=== PATIENT | male | born 1940 | race Caucasian/White ===

== ENCOUNTER 2022-04-19 14:05 | Inpatient (IN) | payer MEDICARE, OTHER ==
[2022-04-18 11:03] LABS: ALBUMIN 2.9 G/DL (3.4-5.0); ANION GAP 8 (8-16); BLOOD UREA NITROGEN 12 MG/DL (7-18); BUN/CREATININE RATIO 14.5 (5.4-32.0); CALCIUM 8.5 MG/DL (8.5-10.1); CHLORIDE 108 MMOL/L (99-107); CREATININE 0.83 MG/DL (0.60-1.10); GLUCOSE 107 MG/DL (70-104); POTASSIUM 3.5 MMOL/L (3.5-5.1); SODIUM 142 MMOL/L (135-145); TOTAL CARBON DIOXIDE 25.7 MMOL/L (24-32); eGFR 89 ML/MIN
[2022-04-18 11:04] LABS: EOSINOPHILS % (AUTO) 0.3 % (0-6); HEMATOCRIT 30.1 % (42.0-52.0); HEMOGLOBIN 9.9 g/dl (14.0-17.9); MEAN CORPUSCULAR HEMOGLOBIN 35.5 PG (27.0-31.0); MEAN CORPUSCULAR VOLUME 107.7 FL (78-98); MEAN PLATELET VOLUME 8.5 FL (7.4-10.4); MONOCYTES # (AUTO) 0.9 X10'3 (0-0.9); NEUTROPHILS # (AUTO) 1.8 X10'3 (1.8-7.7); NEUTROPHILS % (AUTO) 39.9 % (42-75); WHITE BLOOD COUNT 4.6 X10'3 (4.5-11.0)
[2022-04-18 11:05] LABS: BASOPHILS % (AUTO) 0.4 % (0-1); LYMPHOCYTES # (AUTO) 1.8 X10'3 (1.1-4.8); LYMPHOCYTES % (AUTO) 39.9 % (21-51); MONOCYTES % (AUTO) 19.5 % (2-12); PLATELET COUNT 139 X10'3 (140-440); RED BLOOD COUNT 2.79 X10'6 (4.70-6.10)
[2022-04-18 11:08] LABS: APTT 27 SECONDS (22-32)
[2022-04-18 11:27] LABS: TOTAL CELLS COUNTED 100
[2022-04-18 11:28] LABS: ANISOCYTOSIS 2+; MICROCYTOSIS 1+; PLATELET ESTIMATE DECREASED
[~2022-04-19] VITALS: Ht 167.6 cm; Wt 124.2 kg
[2022-04-19] VITALS (7 sets, daily range): BP systolic 123–157; BP diastolic 63–88
[2022-04-19] MEDS ORDERED: diphenhydrAMINE 25mg capsule PO PRN (14:25)
[2022-04-19] MEDS ORDERED: LORazepam 0.5 MG tablet PO PRN (14:25)
[2022-04-19] MEDS ORDERED: FLO0.4C (15:17)
[2022-04-19] MEDS ORDERED: FURO20TA4 (15:17)
[2022-04-19] MEDS ORDERED: ASPI-1265 PO (15:17)
[2022-04-19] MEDS ORDERED: LIDOcaine 1%/PF 5ML 10 MG/ML VIAL ONE (16:06)
[2022-04-19] MEDS ORDERED: verapamil 2.5 mg/ml inj IV ONE (16:06)
[2022-04-19] MEDS ORDERED: nitroGLYCERIN-Tridil 50MG/D5W 250 ML IV ONE (16:06)
[2022-04-19] MEDS ORDERED: heparin 1,000unit/ml 10ml vial 10 ML ONE (16:07)
[2022-04-19] MEDS ORDERED: fentaNYL/PF 50MCG/1 ML 2ML syringe ONE (16:07)
[2022-04-19] MEDS ORDERED: iohexol 350MG/ML 100ml bottle IV ONE (16:07)
[2022-04-19] MEDS ORDERED: midazolam 1 mg/ML 2ml injection ONE (16:07)
--- NOTE | 2022-04-19 17:11 | NUR ---
Bedside report received from Mily RN s/p heart cath. Vasc band to right radial artery. No bleeding/hematoma noted. Vital signs stable.
[2022-04-19] MEDS ORDERED: HYDROcodone/acetaminophen 10/325mg tab PO PRN ×2 (17:30)
[2022-04-19] MEDS ORDERED: FURO-150 PO (17:38)
[2022-04-19] MEDS ORDERED: FLO0.4C PO (17:38)
[2022-04-19] MEDS ORDERED: aspirin 81mg tab.chew PO ONE (17:40)
--- NOTE | 2022-04-19 17:45 | NUR ---
Patient admitted to 301 for surgical consult. Bedside report given to JERRY Rapp. Vasc band in place to right radial artery. No signs of bleeding or hematoma noted. Vital signs stable. All questions answered.
[2022-04-19] MEDS ORDERED: MESSAGE TO PHARMACY IJ ONE (18:25)
--- NOTE | 2022-04-19 19:02 | NUR ---
Problems reprioritized. Patient report given, questions answered & plan of care reviewed with JERRY Charles.
[2022-04-19] MEDS: normal saline 1,000 ML IV SCH (19:07)
[2022-04-19 20:02] LABS: HEMOGLOBIN A1C 6.5 % (4.5-6.2)
[2022-04-19 20:12] LABS: APTT 33 SECONDS (22-32)
[2022-04-19 20:14] LABS: CHOL/HDL RATIO 4.8 (0.00-4.99); CHOLESTEROL 139 MG/DL (0-200); HDL CHOLESTEROL 29 MG/DL (35-60); LDL CHOLESTEROL 88 MG/DL (50-100); TRIGLYCERIDES 95 MG/DL (20-135)
--- NOTE | 2022-04-19 22:01 | NUR ---
Spoke with Didi from Lab and she confirmed that Type and screen and blood is scheduled for Am labs. She was made aware that the orders on nurses end appear type and screen and blood is ordered for 04/21, she reassured me that it will be drawn 04/20 not 04/21. Addendum: 04/19/22 at 2205 by Araceli López RN Amended: Links added.
[2022-04-19 22:21] LABS: ABG BASE EXCESS 1.3 mmol/L (-2.0-2.0); ABG HCO3 25.4 mmol/L (22.0-26.0); ABG OXYGEN SATURATION 90.7 % (94-97); ABG PCO2 (T) 37.9 mmHg (35.0-48.0); ABG PO2 (T) 59.6 mmHg (75.0-100.0); ALLEN'S TEST POSITIVE; FCOHb 0.3 % (0.0-3.9); FMetHb 0.3 % (0.0-1.5); FO2Hb 90.2 % (94-97); PATIENT TEMPERATURE 36.9; TOTAL HEMOGLOBIN 10.5 G/dl (14.0-18.0)
--- NOTE | 2022-04-19 23:00 | NUR ---
Order received from Dr. Gali Dolan for f/c insertion as pt has 560ml in bladder and is unable to void.
[2022-04-19] MEDS ORDERED: LIDOcaine 2% 10ml TOPICAL JELLY (Urojet) TP ONE (23:25)
--- NOTE | 2022-04-19 23:45 | NUR ---
Inserting pts f/c. Pt states that he is uncomfortable and assisted pt to sit up a bit more, pt trying to catch breath and another nurse assisted with repositioning pt and put a nasal canula on. Pt turned dusky, unable to complete sentences, and appeared mottling on upper chest. 0001: Nurse started compressions w/ [facility] activation, as nurse was unable to locate a carotid or radial pulse and pt started agonal breathing. [facility] team arrived. Addendum: 04/20/22 at 0207 by Araceli López RN Amended: Links added.
[2022-04-20] VITALS (36 sets, daily range): BP systolic 84–184; BP diastolic 35–103
[2022-04-20] MEDS: normal saline 1,000 ML IV SCH ×2 (00:25→20:17)
[2022-04-20 00:43] LABS: ABG BASE EXCESS -16.7 mmol/L (-2.0-2.0); ABG OXYGEN SATURATION 74.5 % (94-97); ABG PCO2 (T) 74.8 mmHg (35.0-48.0); ABG PO2 (T) 63.4 mmHg (75.0-100.0); FCOHb 0.3 % (0.0-3.9); FMetHb 0.2 % (0.0-1.5); FO2Hb 74.1 % (94-97)
--- NOTE | 2022-04-20 01:30 | NUR ---
Received patient post code blue from PCU; received report from Natalia RN; pt arrived to 2011 at ~0120, intubated w/RT at bedside; pt on transport monitor; placed on bedside monitor, pt in ST, elevated BP; sats 80s while RT bagging pt; pt unresponsive post code; PERRL, not responding to verbal/painful stimuli; OG to LIS w/coffee brown output; FC to be placed; pt to be started on hypothermia protocol, maintaining 36.0C;
[2022-04-20] MEDS ORDERED: sodium phosphate inj. 15 MMOL in dextrose 5%-water 250 ML IV PRN (01:40)
[2022-04-20] MEDS ORDERED: magnesium 4gm in 100ml NS 100 ML IV PRN (01:40)
[2022-04-20] MEDS ORDERED: sodium phosphate inj. 30 MMOL in dextrose 5%-water 250 ML IV PRN (01:40)
[2022-04-20] MEDS ORDERED: magnesium 2GM in 50ml NS 50 ML IV PRN (01:40)
[2022-04-20] MEDS ORDERED: magnesium Cl slow-release 64mg tablet PO PRN (01:40)
[2022-04-20 01:50] LABS: ABG BASE EXCESS -9.8 mmol/L (-2.0-2.0); ABG HCO3 18.7 mmol/L (22.0-26.0); ABG OXYGEN SATURATION 81.1 % (94-97); ABG PCO2 (T) 51.6 mmHg (35.0-48.0); ABG PO2 (T) 57.6 mmHg (75.0-100.0); ALLEN'S TEST POSITIVE; FMetHb 0.3 % (0.0-1.5); FO2Hb 80.9 % (94-97); PATIENT TEMPERATURE 36.7; PEEP 15 cm H2O; RESPIRATORY RATE 22 b/min; TIDAL VOLUME 450 mL; TOTAL HEMOGLOBIN 12.5 G/dl (14.0-18.0)
[2022-04-20] MEDS ORDERED: sodium bicarbonate (8.4%) inj. 150 MEQ in dextrose 5%-water 1,000 ML IV SCH (01:50)
[2022-04-20 01:56] LABS: APTT 28 SECONDS (22-32)
[2022-04-20 01:58] LABS: ALANINE AMINOTRANSFERASE 30 U/L (12-78); ALBUMIN 2.7 G/DL (3.4-5.0); ALBUMIN/GLOBULIN RATIO 0.6 (1.1-1.5); ALKALINE PHOSPHATASE 118 IU/L (46-116); ANION GAP 14 (8-16); ASPARTATE AMINO TRANSFERASE 41 U/L (10-37); BASOPHILS # (AUTO) 0.1 X10'3 (0-0.2); BASOPHILS % (AUTO) 0.3 % (0-1); BILIRUBIN,TOTAL 0.3 MG/DL (0.1-1.0); BLOOD UREA NITROGEN 13 MG/DL (7-18); BUN/CREATININE RATIO 9.2 (5.4-32.0); CHLORIDE 103 MMOL/L (99-107); CREATININE 1.41 MG/DL (0.60-1.10); GLUCOSE 258 MG/DL (70-104); MEAN CORPUSCULAR VOLUME 113.7 FL (78-98); SODIUM 138 MMOL/L (135-145); TOTAL CARBON DIOXIDE 21.3 MMOL/L (24-32); TOTAL PROTEIN 6.9 G/DL (6.4-8.2); eGFR 48 ML/MIN
[2022-04-20 01:59] LABS: EOSINOPHILS % (AUTO) 0.2 % (0-6); HEMATOCRIT 35.7 % (42.0-52.0); HEMOGLOBIN 11.2 g/dl (14.0-17.9); LYMPHOCYTES # (AUTO) 12.1 X10'3 (1.1-4.8); MEAN CORPUSCULAR HEMOGLOBIN 35.6 PG (27.0-31.0); MEAN CORPUSCULAR HGB CONC 31.3 g/dL (33.0-36.5); MEAN PLATELET VOLUME 8.9 FL (7.4-10.4); MONOCYTES # (AUTO) 1.3 X10'3 (0-0.9); MONOCYTES % (AUTO) 7.4 % (2-12); NEUTROPHILS # (AUTO) 4.5 X10'3 (1.8-7.7); NEUTROPHILS % (AUTO) 25.1 % (42-75); PLATELET COUNT 194 X10'3 (140-440); RED BLOOD COUNT 3.14 X10'6 (4.70-6.10); RED CELL DISTRIBUTION WIDTH 20.5 % (11.5-14.5); WHITE BLOOD COUNT 18.1 X10'3 (4.5-11.0)
[2022-04-20 02:02] LABS: MAGNESIUM 1.8 MG/DL (1.5-2.4); POTASSIUM 3.8 MMOL/L (3.5-5.1)
[2022-04-20] MEDS: midazolam 100mg in NS 100ml 100 ML IV PRN ×2 (02:17→23:51)
[2022-04-20] MEDS: FENTANYL-0.9 % NACL/PF 100 ML IV PRN ×2 (02:17→21:37)
[2022-04-20] MEDS ORDERED: furosemide 40mg/4ml inj ONE (02:18)
[2022-04-20] MEDS ORDERED: furosemide 40mg/4ml inj IV ONE (02:20)
[2022-04-20] MEDS ORDERED: sodium bicarbonate (8.4%) 1 mEq/ml syringe ONE (02:39)
[2022-04-20] MEDS ORDERED: dextrose 50%-water 50ml dispensing syringe IV PRN ×2 (02:40)
[2022-04-20] MEDS ORDERED: insulin Lispro (HumaLOG) vial - multi-dose SQ SCH (02:40)
[2022-04-20] MEDS ORDERED: sodium bicarbonate (8.4%) 1 mEq/ml syringe IV ONE (02:50)
--- NOTE | 2022-04-20 03:00 | NUR ---
Low dose sedation started; pt hypertensive but not responding at this time; cooling measures started w/goal to be 36.0; gaspar placed w/cloudy yellow urine out; good radial pulsed, no hematoma or oozing at R radial puncture site; abd large/soft, OG w/small amt of blood/brown output; orders reviewed w/Dr. Valentin MD verified CVL placement CXR, aware of critical values post code including acidotic ABG; changes made to vent w/increased peep for continued low sats in 70s; lasix given w/good results, sats improved post lasix/increased peep; lungs clear but diminished bilat;
[2022-04-20 03:23] LABS: ANISOCYTOSIS 3+; TOTAL CELLS COUNTED 100
[2022-04-20 03:30] LABS: PLATELET ESTIMATE NORMAL
[2022-04-20] MEDS: meperidine/PF 25mg/ml syringe IV SCH ×2 (04:00→08:00)
[2022-04-20] MEDS ORDERED: heparin 10,000 units/1 ML INJ IV ONE (04:35)
[2022-04-20] MEDS: heparin 25,000 UNIT/250ml bag 250 ML IV SCH (05:12)
[2022-04-20] MEDS ORDERED: NORepinephrine 8mg/ 250ml NS 250 ML IV ONE (05:14)
[2022-04-20] MEDS ORDERED: NORepinephrine 8mg/ 250ml NS 250 ML IV SCH (05:15)
--- NOTE | 2022-04-20 06:30 | NUR ---
Pt woke up, able to follow simple commands; OBREGON; update given to Dr. Hanson, pt now hypotensive w/SBP 80s; levophed started; heparin gtt started per protocol for + troponin; update given to granddaughter, questions answered. Shift report given to JERRY Lund; questions answered.
[2022-04-20] MEDS ORDERED: insulin regular, human U-100 3ml vial - multi-dose SQ SCH (08:00)
[2022-04-20] MEDS ORDERED: aspirin 81mg tab.chew PO SCH (08:00)
[2022-04-20] MEDS ORDERED: furosemide 20MG tablet PO SCH (08:00)
[2022-04-20 08:10] LABS: ABG BASE EXCESS -1.4 mmol/L (-2.0-2.0); ABG HCO3 25.3 mmol/L (22.0-26.0); ABG OXYGEN SATURATION 93.7 % (94-97); ABG PCO2 (T) 47.2 mmHg (35.0-48.0); ALLEN'S TEST POSITIVE; FCOHb 0.2 % (0.0-3.9); FMetHb 0.1 % (0.0-1.5); FO2Hb 93.4 % (94-97); PATIENT TEMPERATURE 35.4; PEEP 18 cm H2O; RESPIRATORY RATE 22 b/min; TIDAL VOLUME 450 mL; TOTAL HEMOGLOBIN 13.8 G/dl (14.0-18.0)
[2022-04-20] MEDS ORDERED: normal saline 500ml IV soln 500 ML IV ONE (08:15)
[2022-04-20 08:23] LABS: ALBUMIN 2.3 G/DL (3.4-5.0); ANION GAP 11 (8-16); BLOOD UREA NITROGEN 19 MG/DL (7-18); BUN/CREATININE RATIO 11.7 (5.4-32.0); CALCIUM 7.9 MG/DL (8.5-10.1); CHLORIDE 109 MMOL/L (99-107); CREATININE 1.63 MG/DL (0.60-1.10); GLUCOSE 181 MG/DL (70-104); MAGNESIUM 1.5 MG/DL (1.5-2.4); SODIUM 146 MMOL/L (135-145); TOTAL CARBON DIOXIDE 26.4 MMOL/L (24-32); eGFR 41 ML/MIN
[2022-04-20 08:33] LABS: POTASSIUM 2.5 MMOL/L (3.5-5.1)
[2022-04-20] MEDS: potassium Cl 20mEq/100mL bag 100 ML IV PRN (08:36)
[2022-04-20] MEDS: cefepime 1GM/NS ADD-VANTAGE 100 ML IV SCH ×3 (08:36→23:50)
[2022-04-20] MEDS: sodium bicarbonate (8.4%) inj. 150 MEQ in dextrose 5%-water 1,000 ML IV SCH ×2 (08:36→23:01)
[2022-04-20] MEDS: NORepinephrine inj. 32 MG in normal saline 250ml IV soln 218 ML IV SCH ×2 (08:37→20:18)
--- NOTE | 2022-04-20 09:00 | NUR ---
Initial: Pt admit for CAD. Per certified ski patroller pt s/p code blue and now intubated with coffee brown output present once OGT placed on LIS. Prior to intubation pt was on a heart healthy diet and documented with 75-100% PO intake of first meal. No TF consult at this time though will place TF recommendations below for if expected prolonged intubation and to receive nutrition support. Noted pt receiving NaBicarb/D5 at 75 mL/hr providing 306 kcal/day. LBM 04/18. Will continue to follow closely. Recommendations: 1) IF TF, continuous Vital HP with 75 mL/hr goal rate. Begin at 35 mL/hr and advance by 20 mL Q8H as tolerated to goal rate; may need to adjust goal rate if pt to continue receiving D5 2) IF TF, additional 120 mL water flush Q4H; monitor serum Na 3) IF TF, prealbumin q Friday/ 4) Daily scaled weights per rx 5) Routine bowel care Addendum: 04/20/22 at [address] Amended: Links added.
[2022-04-20] MEDS ORDERED: insulin regular, human 10 units/0.1 ml syringe SQ SCH (09:38)
[2022-04-20] MEDS: aspirin 81mg tab.chew PO SCH (09:47)
[2022-04-20] MEDS: furosemide 40mg/4ml inj IV SCH ×2 (09:47→19:27)
[2022-04-20] MEDS: atorvastatin 20mg tablet PO SCH (09:49)
[2022-04-20] MEDS: metoprolol succinate 25mg (24-HOUR) SR. Tablet PO SCH (09:50)
[2022-04-20] MEDS: pantoprazole 40MG/NS 100ML BAG 100 ML IV SCH (09:51)
[2022-04-20] MEDS: tamsulosin 0.4mg capsule PO SCH (09:51)
[2022-04-20 12:59] LABS: ALBUMIN 2.3 G/DL (3.4-5.0); ANION GAP 4 (8-16); BLOOD UREA NITROGEN 21 MG/DL (7-18); BUN/CREATININE RATIO 11.9 (5.4-32.0); CALCIUM 7.3 MG/DL (8.5-10.1); CHLORIDE 112 MMOL/L (99-107); CREATININE 1.76 MG/DL (0.60-1.10); GLUCOSE 156 MG/DL (70-104); MAGNESIUM 1.4 MG/DL (1.5-2.4); SODIUM 144 MMOL/L (135-145); TOTAL CARBON DIOXIDE 27.6 MMOL/L (24-32); eGFR 37 ML/MIN
[2022-04-20 13:09] LABS: POTASSIUM 7.1 MMOL/L (3.5-5.1)
--- NOTE | 2022-04-20 18:30 | NUR ---
Received report from JERRY Lund; questions answered; grand daughter at bedside, updated on plan of care; per Dr. Carrillo, OR on hold for now; pt sedated w/fent/versed, will open eyes to stimulation; follows simple commands; sats adeq on 80%, but pt w/mod abd breathing, pulling large volumes on vent; not tachypnic; BP supo Addendum: 04/21/22 at 0032 by Iesha Peña RN BP supported w/levo at 0.4mcg/kg/min; orders in place to add vasopressin; HR SR 90s; remains on bicarb gtt and heparin gtt per protocol. UO minimal; still w/sm amt of brown colored OG output.
[2022-04-20] MEDS: vasopressin inj. 40 UNIT in dextrose 5%-water 50ml 38 ML IV SCH (19:27)
[2022-04-20 20:13] LABS: ALBUMIN 2.2 G/DL (3.4-5.0); ANION GAP 11 (8-16); BLOOD UREA NITROGEN 25 MG/DL (7-18); BUN/CREATININE RATIO 12.9 (5.4-32.0); CALCIUM 7.5 MG/DL (8.5-10.1); CHLORIDE 108 MMOL/L (99-107); CREATININE 1.94 MG/DL (0.60-1.10); GLUCOSE 105 MG/DL (70-104); MAGNESIUM 1.3 MG/DL (1.5-2.4); POTASSIUM 4.9 MMOL/L (3.5-5.1); SODIUM 146 MMOL/L (135-145); TOTAL CARBON DIOXIDE 27.1 MMOL/L (24-32); eGFR 33 ML/MIN
[2022-04-20] MEDS: insulin glargine (Lantus) pen - multi-dose SQ SCH (21:00)
[2022-04-20 21:23] LABS: ABG BASE EXCESS -0.9 mmol/L (-2.0-2.0); ABG HCO3 25.7 mmol/L (22.0-26.0); ABG PCO2 (T) 49.4 mmHg (35.0-48.0); ABG PO2 (T) 68.7 mmHg (75.0-100.0); ALLEN'S TEST POSITIVE; FCOHb 0.3 % (0.0-3.9); FMetHb 0.1 % (0.0-1.5); FO2Hb 92.6 % (94-97); PATIENT TEMPERATURE 36.4; PEEP 18 cm H2O; RESPIRATORY RATE 22 b/min; TIDAL VOLUME 450 mL; TOTAL HEMOGLOBIN 12.5 G/dl (14.0-18.0)
[2022-04-20 21:51] LABS: OXYGEN SATURATION (MIXED VEN) 40.9 % (60-80); PO2 MIXED VENOUS (TEMP COR) 24.8 mmHg (35-46)
--- NOTE | 2022-04-20 22:00 | NUR ---
Sedation increased slightly for comfort; titrating down levo slowly, added low dose vasopressin; recent abg w/improved ph; mixed venous 41; MD aware, fio2 increased on vent per orders; no other orders; heparin off x 1hr per protocol; no change in mentation; pt resting comfortably.
[2022-04-21] VITALS (34 sets, daily range): BP systolic 93–146; BP diastolic 43–75
--- NOTE | 2022-04-21 01:00 | NUR ---
No change in status; pt lightly sedated on vent; UO remains borderline; VSS, minimal levo; sm amt of bleeding around meatus, no blood in urine, urine cloudy, yumi; rash noted under pannus, tucked pillow case in place to help absorb moisture.
[2022-04-21] MEDS: mineral oil/petrolatum ophthal oint EACHEYE SCH ×4 (02:28→19:42)
[2022-04-21 03:02] LABS: BASOPHILS % (AUTO) 0.3 % (0-1); HEMOGLOBIN 10.8 g/dl (14.0-17.9); WHITE BLOOD COUNT 11.8 X10'3 (4.5-11.0)
[2022-04-21 03:03] LABS: EOSINOPHILS % (AUTO) 0 % (0-6); HEMATOCRIT 33.7 % (42.0-52.0); LYMPHOCYTES # (AUTO) 2.5 X10'3 (1.1-4.8); LYMPHOCYTES % (AUTO) 21.2 % (21-51); MEAN CORPUSCULAR HEMOGLOBIN 34.7 PG (27.0-31.0); MEAN CORPUSCULAR VOLUME 108.4 FL (78-98); MEAN PLATELET VOLUME 8.4 FL (7.4-10.4); MONOCYTES # (AUTO) 2.3 X10'3 (0-0.9); MONOCYTES % (AUTO) 19.4 % (2-12); NEUTROPHILS % (AUTO) 59.1 % (42-75); PLATELET COUNT 184 X10'3 (140-440); RED BLOOD COUNT 3.11 X10'6 (4.70-6.10); RED CELL DISTRIBUTION WIDTH 19.8 % (11.5-14.5)
[2022-04-21 03:12] LABS: ALANINE AMINOTRANSFERASE 36 U/L (12-78); ALBUMIN 2.1 G/DL (3.4-5.0); ALBUMIN/GLOBULIN RATIO 0.5 (1.1-1.5); ALKALINE PHOSPHATASE 79 IU/L (46-116); ANION GAP 7 (8-16); ASPARTATE AMINO TRANSFERASE 55 U/L (10-37); BILIRUBIN,TOTAL 0.8 MG/DL (0.1-1.0); BLOOD UREA NITROGEN 28 MG/DL (7-18); BUN/CREATININE RATIO 14.2 (5.4-32.0); CALCIUM 7.3 MG/DL (8.5-10.1); CHLORIDE 107 MMOL/L (99-107); CREATININE 1.97 MG/DL (0.60-1.10); GLUCOSE 98 MG/DL (70-104); MAGNESIUM 1.9 MG/DL (1.5-2.4); POTASSIUM 5.2 MMOL/L (3.5-5.1); SODIUM 144 MMOL/L (135-145); TOTAL CARBON DIOXIDE 29.7 MMOL/L (24-32); eGFR 33 ML/MIN
[2022-04-21] MEDS: FENTANYL-0.9 % NACL/PF 100 ML IV PRN ×2 (03:55→10:00)
[2022-04-21 04:04] LABS: ABG BASE EXCESS 2.1 mmol/L (-2.0-2.0); ABG OXYGEN SATURATION 97.3 % (94-97); ABG PCO2 (T) 54.2 mmHg (35.0-48.0); ABG PO2 (T) 102.5 mmHg (75.0-100.0); ALLEN'S TEST POSITIVE; FCOHb 0.3 % (0.0-3.9); FMetHb 0.1 % (0.0-1.5); FO2Hb 96.9 % (94-97); PATIENT TEMPERATURE 36.2; PEEP 18 cm H2O; RESPIRATORY RATE 22 b/min; TIDAL VOLUME 450 mL; TOTAL HEMOGLOBIN 11.8 G/dl (14.0-18.0)
[2022-04-21] MEDS ORDERED: MALTODEXTRIN/FRUCTOSE 0.68 KCAL/ML LIQUID 296ML BOTTLE PO ONE (05:30)
[2022-04-21] MEDS ORDERED: VANCOMYCIN 1,500MG inj. 1,500 MG in normal saline 500ml IV soln 300 ML IV ONE (05:30)
[2022-04-21] MEDS ORDERED: cefazolin/dext.iso 2gm/50ml 50 ML IV ONE (05:30)
[2022-04-21 05:59] LABS: ANISOCYTOSIS 2+; PLATELET ESTIMATE NORMAL; TOTAL CELLS COUNTED 100
--- NOTE | 2022-04-21 06:20 | NUR ---
Patient in room CICU 2011. I have received report from Mily EDWARDS and had the opportunity to ask questions and assume patient care.
--- NOTE | 2022-04-21 06:31 | NUR ---
Report given to JERRY Jacome; questions answered.
[2022-04-21] MEDS: heparin 25,000 UNIT/250ml bag 250 ML IV SCH ×4 (06:48→16:23)
[2022-04-21] MEDS: tamsulosin 0.4mg capsule PO SCH (07:25)
[2022-04-21] MEDS: metoprolol succinate 25mg (24-HOUR) SR. Tablet PO SCH (07:25)
[2022-04-21] MEDS: aspirin 81mg tab.chew PO SCH (07:25)
[2022-04-21] MEDS: atorvastatin 20mg tablet PO SCH (07:25)
[2022-04-21] MEDS: pantoprazole 40MG/NS 100ML BAG 100 ML IV SCH (07:35)
[2022-04-21] MEDS: furosemide 40mg/4ml inj IV SCH ×2 (07:35→19:42)
[2022-04-21] MEDS: cefepime 1GM/NS ADD-VANTAGE 100 ML IV SCH ×3 (08:25→23:42)
[2022-04-21] MEDS ORDERED: MESSAGE TO NURSING PO ONE ×5 (10:00)
[2022-04-21 12:09] LABS: ABG BASE EXCESS -1.4 mmol/L (-2.0-2.0); ABG HCO3 24.3 mmol/L (22.0-26.0); ABG OXYGEN SATURATION 97.2 % (94-97); ABG PCO2 (T) 43.4 mmHg (35.0-48.0); ABG PO2 (T) 100.4 mmHg (75.0-100.0); ALLEN'S TEST POSITIVE; FCOHb 0.3 % (0.0-3.9); FMetHb 0.2 % (0.0-1.5); FO2Hb 96.7 % (94-97); PEEP 18 cm H2O; RESPIRATORY RATE 22 b/min; TIDAL VOLUME 450 mL
[2022-04-21] MEDS: vasopressin inj. 40 UNIT in dextrose 5%-water 50ml 38 ML IV SCH (15:27)
--- NOTE | 2022-04-21 18:37 | NUR ---
Problems reprioritized. Patient report given, questions answered & plan of care reviewed with Jamarcus EDWARDS.
--- NOTE | 2022-04-21 18:38 | NUR ---
Patient in room CICU 2011. I have received report from Floyd EDWARDS and had the opportunity to ask questions and assume patient care.
[2022-04-21] MEDS: insulin glargine (Lantus) pen - multi-dose SQ SCH (20:21)
--- NOTE | 2022-04-21 21:00 | NUR ---
[id number] BED BATH AND ORAL CARE GIVEN , PATIENT TOLERATED WELL, NODS HEAD "YES" TO SLIGHT DISCOMFORT, REPOSITIONED FOR RELIEF
[2022-04-21 21:59] LABS: ANION GAP 9 (8-16); BLOOD UREA NITROGEN 39 MG/DL (7-18); CALCIUM 7.2 MG/DL (8.5-10.1); CHLORIDE 105 MMOL/L (99-107); GLUCOSE 112 MG/DL (70-104); MAGNESIUM 1.7 MG/DL (1.5-2.4); POTASSIUM 4.8 MMOL/L (3.5-5.1); SODIUM 143 MMOL/L (135-145); TOTAL CARBON DIOXIDE 28.6 MMOL/L (24-32); eGFR 27 ML/MIN
[2022-04-21] MEDS ORDERED: amiodarone 150mg/dext, iso-os 100 ML IV ONE ×2 (23:05→23:06)
--- NOTE | 2022-04-21 23:10 | NUR ---
SINGLE RESOURCE BOSS SHOWS AFIB, DR TABARES NOTIFIED AND ORDERS RECEIVED FOR AMIODARONE IV GTT
[2022-04-21] MEDS: amiodarone/D5 360MG/200ML BAG 200 ML IV SCH (23:19)
[2022-04-22] VITALS (34 sets, daily range): BP systolic 11–134; BP diastolic 18–87
--- NOTE | 2022-04-22 01:00 | NUR ---
[id number] repositioned q 2 hrs tolerating well
[2022-04-22 01:33] LABS: ABG BASE EXCESS -0.6 mmol/L (-2.0-2.0); ABG HCO3 24.5 mmol/L (22.0-26.0); ABG OXYGEN SATURATION 94.2 % (94-97); ABG PCO2 (T) 42.2 mmHg (35.0-48.0); ABG PO2 (T) 77.9 mmHg (75.0-100.0); ALLEN'S TEST POSITIVE; FCOHb 0.3 % (0.0-3.9); FMetHb 0.1 % (0.0-1.5); FO2Hb 93.8 % (94-97); PEEP 18 cm H2O; RESPIRATORY RATE 22 b/min; TIDAL VOLUME 450 mL; TOTAL HEMOGLOBIN 9.8 G/dl (14.0-18.0)
[2022-04-22] MEDS: mineral oil/petrolatum ophthal oint EACHEYE SCH ×4 (02:00→20:30)
[2022-04-22 03:03] LABS: EOSINOPHILS % (AUTO) 0.1 % (0-6)
[2022-04-22 03:05] LABS: BASOPHILS % (AUTO) 0.4 % (0-1); HEMATOCRIT 27.4 % (42.0-52.0); HEMOGLOBIN 8.8 g/dl (14.0-17.9); LYMPHOCYTES # (AUTO) 1.2 X10'3 (1.1-4.8); LYMPHOCYTES % (AUTO) 19.4 % (21-51); MEAN CORPUSCULAR HEMOGLOBIN 34.9 PG (27.0-31.0); MEAN CORPUSCULAR HGB CONC 32.3 g/dL (33.0-36.5); MEAN CORPUSCULAR VOLUME 108.2 FL (78-98); MEAN PLATELET VOLUME 8.8 FL (7.4-10.4); MONOCYTES # (AUTO) 0.9 X10'3 (0-0.9); MONOCYTES % (AUTO) 13.4 % (2-12); NEUTROPHILS # (AUTO) 4.2 X10'3 (1.8-7.7); NEUTROPHILS % (AUTO) 66.7 % (42-75); PLATELET COUNT 116 X10'3 (140-440); RED BLOOD COUNT 2.53 X10'6 (4.70-6.10); RED CELL DISTRIBUTION WIDTH 19.5 % (11.5-14.5); WHITE BLOOD COUNT 6.3 X10'3 (4.5-11.0)
[2022-04-22 03:17] LABS: ALANINE AMINOTRANSFERASE 40 U/L (12-78); ALBUMIN 1.9 G/DL (3.4-5.0); ALBUMIN/GLOBULIN RATIO 0.5 (1.1-1.5); ALKALINE PHOSPHATASE 74 IU/L (46-116); ANION GAP 9 (8-16); ASPARTATE AMINO TRANSFERASE 95 U/L (10-37); BILIRUBIN,TOTAL 0.7 MG/DL (0.1-1.0); BLOOD UREA NITROGEN 43 MG/DL (7-18); BUN/CREATININE RATIO 17.5 (5.4-32.0); CALCIUM 7.2 MG/DL (8.5-10.1); CHLORIDE 106 MMOL/L (99-107); CREATININE 2.46 MG/DL (0.60-1.10); GLUCOSE 136 MG/DL (70-104); MAGNESIUM 1.7 MG/DL (1.5-2.4); POTASSIUM 4.4 MMOL/L (3.5-5.1); SODIUM 143 MMOL/L (135-145); TOTAL CARBON DIOXIDE 28.5 MMOL/L (24-32); TOTAL PROTEIN 5.5 G/DL (6.4-8.2); eGFR 25 ML/MIN
[2022-04-22] MEDS: FENTANYL-0.9 % NACL/PF 100 ML IV PRN ×2 (04:00→21:08)
[2022-04-22] MEDS: midazolam 100mg in NS 100ml 100 ML IV PRN (04:01)
[2022-04-22] MEDS: NORepinephrine inj. 32 MG in normal saline 250ml IV soln 218 ML IV SCH (04:55)
--- NOTE | 2022-04-22 05:00 | NUR ---
AM ABG and AM labs reviewed and no critical william at this time
[2022-04-22] MEDS: amiodarone/D5 360MG/200ML BAG 200 ML IV SCH ×2 (06:00→16:26)
--- NOTE | 2022-04-22 06:00 | NUR ---
Patient in room CICU 2011. I have received report from Jamarcus EDWARDS and had the opportunity to ask questions and assume patient care.
--- NOTE | 2022-04-22 06:18 | NUR ---
Problems reprioritized. Patient report given, questions answered & plan of care reviewed with PATRICIA EDWARDS.
[2022-04-22 06:54] LABS: TOTAL CELLS COUNTED 100
[2022-04-22 06:55] LABS: ANISOCYTOSIS 2+; PLATELET ESTIMATE DECREASED
[2022-04-22] MEDS: metoprolol succinate 25mg (24-HOUR) SR. Tablet PO SCH (07:39)
[2022-04-22] MEDS: tamsulosin 0.4mg capsule PO SCH (07:39)
[2022-04-22] MEDS: atorvastatin 20mg tablet PO SCH (07:39)
[2022-04-22] MEDS: aspirin 81mg tab.chew PO SCH (07:40)
[2022-04-22] MEDS: pantoprazole 40MG/NS 100ML BAG 100 ML IV SCH (07:43)
[2022-04-22] MEDS: furosemide 40mg/4ml inj IV SCH ×3 (07:44→23:55)
[2022-04-22] MEDS: cefepime 1GM/NS ADD-VANTAGE 100 ML IV SCH ×3 (07:44→23:55)
[2022-04-22] MEDS: albumin (human) 25% 100 ML IV solution IV SCH ×3 (08:59→20:17)
[2022-04-22] MEDS: K, MAG and/or Phos replacement - Verify level? MC SCH (09:00)
[2022-04-22] MEDS ORDERED: HEPARIN SOD,PORK IN 0.45% NACL 250 ML IV SCH (09:55)
[2022-04-22] MEDS: heparin 10,000 units/1 ML INJ IV PRN ×2 (11:41→23:48)
[2022-04-22] MEDS: heparin 25,000 UNIT/250ml bag 250 ML IV SCH ×2 (11:41→23:49)
--- NOTE | 2022-04-22 11:52 | NUR ---
TF consult: Pt remains intubated w/ OG in place DX septic shock, lactic acidosis, and acute renal failure per EMR. TF to start today per MD; recs below. Phos 7.0 04/20 w/ no BM past two days this admit; bowel regimen and phos binder to start today per MD. Will monitor for EN tolerance and adjustment needs on vent. Recommendations: 1) Continuous TF per MD using Vital HP at 75 mL/hr goal; to provide 1800ml volume/day, 1800 kcals, 1505ml water, and 157g protein. 2) additional 100mL water flush Q6H; monitor serum Na 3) prealbumin q Friday/; daily wts 4) Phos binder w/ EN per MD; Phos 7.0mg/dl 04/20 5) Routine bowel care Addendum: 04/22/22 at [address] Amended: Links added.
[2022-04-22] MEDS ORDERED: calcium acetate 667mg (phosLO) tablet OGT SCH (12:00)
[2022-04-22] MEDS: calcium acetate 667mg (PhosLO) capsule OGT SCH (16:08)
--- NOTE | 2022-04-22 18:30 | NUR ---
Patient in room CICU 2011. I have received report from JERRY Jacome and had the opportunity to ask questions and assume patient care. Patient intubated/sedated, family at bedside.
--- NOTE | 2022-04-22 18:55 | NUR ---
Problems reprioritized. Patient report given, questions answered & plan of care reviewed with Tangela EDWARDS.
[2022-04-22] MEDS: docusate sodium 100mg/10ml UD cup OGT SCH (20:17)
[2022-04-22] MEDS: insulin glargine (Lantus) pen - multi-dose SQ SCH (21:00)
[2022-04-23] VITALS (35 sets, daily range): BP systolic 102–125; BP diastolic 46–64
[2022-04-23] MEDS: mineral oil/petrolatum ophthal oint EACHEYE SCH ×4 (02:00→20:00)
[2022-04-23 02:31] LABS: LYMPHOCYTES # (AUTO) 1.4 X10'3 (1.1-4.8); MONOCYTES # (AUTO) 0.5 X10'3 (0-0.9); NEUTROPHILS # (AUTO) 3.1 X10'3 (1.8-7.7); NEUTROPHILS % (AUTO) 61.8 % (42-75)
[2022-04-23 02:32] LABS: BASOPHILS % (AUTO) 0.4 % (0-1); EOSINOPHILS % (AUTO) 0.2 % (0-6); LYMPHOCYTES % (AUTO) 28.2 % (21-51); MEAN CORPUSCULAR HEMOGLOBIN 35.3 PG (27.0-31.0); MEAN CORPUSCULAR HGB CONC 33.2 g/dL (33.0-36.5); MEAN CORPUSCULAR VOLUME 106.2 FL (78-98); MEAN PLATELET VOLUME 8.5 FL (7.4-10.4); MONOCYTES % (AUTO) 9.4 % (2-12); PLATELET COUNT 85 X10'3 (140-440); RED BLOOD COUNT 1.94 X10'6 (4.70-6.10); RED CELL DISTRIBUTION WIDTH 19.8 % (11.5-14.5)
[2022-04-23 02:39] LABS: HEMATOCRIT 20.6 % (42.0-52.0); HEMOGLOBIN 6.8 g/dl (14.0-17.9)
--- NOTE | 2022-04-23 02:45 | NUR ---
Patient's HH is 6.8/20.6, I cld Dr. Frankel and she advised me to order and give 1unit of PRBC
[2022-04-23 02:46] LABS: ALANINE AMINOTRANSFERASE 31 U/L (12-78); ALBUMIN 2.4 G/DL (3.4-5.0); ALBUMIN/GLOBULIN RATIO 0.8 (1.1-1.5); ALKALINE PHOSPHATASE 62 IU/L (46-116); ANION GAP 3 (8-16); ASPARTATE AMINO TRANSFERASE 56 U/L (10-37); BILIRUBIN,TOTAL 0.7 MG/DL (0.1-1.0); BLOOD UREA NITROGEN 60 MG/DL (7-18); BUN/CREATININE RATIO 21.4 (5.4-32.0); CALCIUM 7.3 MG/DL (8.5-10.1); CHLORIDE 104 MMOL/L (99-107); CREATININE 2.81 MG/DL (0.60-1.10); GLUCOSE 137 MG/DL (70-104); SODIUM 138 MMOL/L (135-145); TOTAL CARBON DIOXIDE 30.6 MMOL/L (24-32); TOTAL PROTEIN 5.5 G/DL (6.4-8.2); eGFR 22 ML/MIN
[2022-04-23 02:59] LABS: ANISOCYTOSIS 2+; PLATELET ESTIMATE DECREASED
[2022-04-23 03:18] LABS: ABG BASE EXCESS 5.6 mmol/L (-2.0-2.0); ABG HCO3 29.2 mmol/L (22.0-26.0); ABG OXYGEN SATURATION 98.1 % (94-97); ABG PCO2 (T) 38.4 mmHg (35.0-48.0); ABG PO2 (T) 116.5 mmHg (75.0-100.0); ALLEN'S TEST POSITIVE; FCOHb 0.3 % (0.0-3.9); FMetHb 0.1 % (0.0-1.5); FO2Hb 97.7 % (94-97); PEEP 16 cm H2O; RESPIRATORY RATE 22 b/min; TIDAL VOLUME 450 mL; TOTAL HEMOGLOBIN 7.5 G/dl (14.0-18.0)
[2022-04-23] MEDS: amiodarone/D5 360MG/200ML BAG 200 ML IV SCH ×2 (04:34→15:19)
[2022-04-23] MEDS: potassium Cl 20mEq/100mL bag 100 ML IV PRN ×4 (06:33→09:42)
[2022-04-23] MEDS: aspirin 81mg tab.chew OGT SCH (07:33)
[2022-04-23] MEDS: pantoprazole 40MG/NS 100ML BAG 100 ML IV SCH (07:33)
[2022-04-23] MEDS: furosemide 40mg/4ml inj IV SCH ×2 (07:33→15:22)
[2022-04-23] MEDS: docusate sodium 100mg/10ml UD cup OGT SCH ×2 (07:33→19:59)
[2022-04-23] MEDS: calcium acetate 667mg (PhosLO) capsule OGT SCH (07:33)
[2022-04-23] MEDS: tamsulosin 0.4mg capsule PO SCH (07:34)
[2022-04-23] MEDS: atorvastatin 20mg tablet OGT SCH (07:34)
[2022-04-23] MEDS: metoprolol succinate 25mg (24-HOUR) SR. Tablet PO SCH (07:34)
[2022-04-23] MEDS: K, MAG and/or Phos replacement - Verify level? MC SCH (07:34)
[2022-04-23] MEDS: cefepime 1GM/NS ADD-VANTAGE 100 ML IV SCH ×2 (07:43→15:22)
[2022-04-23] MEDS: albumin (human) 25% 100 ML IV solution IV SCH ×3 (08:01→20:00)
[2022-04-23 10:48] LABS: PHOSPHORUS 2.7 MG/DL (2.3-4.5)
[2022-04-23] MEDS: HEPARIN SOD,PORK IN 0.45% NACL 250 ML IV SCH (11:28)
--- NOTE | 2022-04-23 11:45 | NUR ---
RN notified Dr. Colby of phos level 2.7. Alyssa bryant.
[2022-04-23] MEDS: midazolam 100mg in NS 100ml 100 ML IV PRN (16:25)
[2022-04-23] MEDS: FENTANYL-0.9 % NACL/PF 100 ML IV PRN (16:25)
[2022-04-23] MEDS: normal saline 1,000 ML IV SCH (17:17)
--- NOTE | 2022-04-23 18:20 | NUR ---
Patient in room CICU 2011. I have received report from JERRY Huang and had the opportunity to ask questions and assume patient care. Patient still intubated/sedated,the plan is to ween and extubate tomorrow and then CABG on Friday.
[2022-04-23] MEDS: insulin glargine (Lantus) pen - multi-dose SQ SCH (21:00)
[2022-04-24] VITALS (34 sets, daily range): BP systolic 102–144; BP diastolic 46–65
[2022-04-24] MEDS: furosemide 40mg/4ml inj IV SCH ×2 (00:44→08:09)
[2022-04-24] MEDS: cefepime 1GM/NS ADD-VANTAGE 100 ML IV SCH ×3 (00:44→16:09)
[2022-04-24 02:22] LABS: HEMOGLOBIN 7.5 g/dl (14.0-17.9); LYMPHOCYTES # (AUTO) 1.2 X10'3 (1.1-4.8); MEAN PLATELET VOLUME 9.2 FL (7.4-10.4); NEUTROPHILS # (AUTO) 2.6 X10'3 (1.8-7.7); WHITE BLOOD COUNT 4.2 X10'3 (4.5-11.0)
[2022-04-24 02:24] LABS: BASOPHILS % (AUTO) 0.5 % (0-1); EOSINOPHILS % (AUTO) 0.3 % (0-6); HEMATOCRIT 22.3 % (42.0-52.0); LYMPHOCYTES % (AUTO) 27.3 % (21-51); MEAN CORPUSCULAR HEMOGLOBIN 34.7 PG (27.0-31.0); MEAN CORPUSCULAR HGB CONC 33.6 g/dL (33.0-36.5); MEAN CORPUSCULAR VOLUME 103.4 FL (78-98); MONOCYTES # (AUTO) 0.5 X10'3 (0-0.9); MONOCYTES % (AUTO) 10.6 % (2-12); NEUTROPHILS % (AUTO) 61.3 % (42-75); PLATELET COUNT 76 X10'3 (140-440); RED BLOOD COUNT 2.16 X10'6 (4.70-6.10); RED CELL DISTRIBUTION WIDTH 20.6 % (11.5-14.5)
[2022-04-24 02:36] LABS: ALANINE AMINOTRANSFERASE 28 U/L (12-78); ALBUMIN 2.8 G/DL (3.4-5.0); ALKALINE PHOSPHATASE 70 IU/L (46-116); ANION GAP 11 (8-16); ASPARTATE AMINO TRANSFERASE 39 U/L (10-37); BILIRUBIN,TOTAL 0.9 MG/DL (0.1-1.0); BLOOD UREA NITROGEN 71 MG/DL (7-18); BUN/CREATININE RATIO 23.1 (5.4-32.0); CALCIUM 7.7 MG/DL (8.5-10.1); CHLORIDE 103 MMOL/L (99-107); CREATININE 3.08 MG/DL (0.60-1.10); GLUCOSE 135 MG/DL (70-104); MAGNESIUM 1.8 MG/DL (1.5-2.4); POTASSIUM 3.2 MMOL/L (3.5-5.1); SODIUM 141 MMOL/L (135-145); TOTAL CARBON DIOXIDE 27.4 MMOL/L (24-32); TOTAL PROTEIN 5.7 G/DL (6.4-8.2); eGFR 20 ML/MIN
[2022-04-24 02:48] LABS: TOTAL CELLS COUNTED 100
[2022-04-24] MEDS: mineral oil/petrolatum ophthal oint EACHEYE SCH ×4 (02:49→20:41)
[2022-04-24 02:50] LABS: ANISOCYTOSIS 2+; GIANT PLATELET FEW; LARGE PLATELETS FEW; PLATELET ESTIMATE DECREASED
[2022-04-24] MEDS: HEPARIN SOD,PORK IN 0.45% NACL 250 ML IV SCH ×3 (02:54→13:00)
[2022-04-24] MEDS: potassium Cl 20mEq/100mL bag 100 ML IV PRN ×2 (03:00→05:43)
[2022-04-24 04:21] LABS: ABG BASE EXCESS 3.2 mmol/L (-2.0-2.0); ABG HCO3 26.1 mmol/L (22.0-26.0); ABG OXYGEN SATURATION 95.6 % (94-97); ABG PCO2 (T) 33.9 mmHg (35.0-48.0); ALLEN'S TEST POSITIVE; FCOHb 0.3 % (0.0-3.9); FMetHb 0.1 % (0.0-1.5); FO2Hb 95.2 % (94-97); PATIENT TEMPERATURE 37.7; PEEP 10 cm H2O; RESPIRATORY RATE 22 b/min; TIDAL VOLUME 450 mL; TOTAL HEMOGLOBIN 8.6 G/dl (14.0-18.0)
[2022-04-24] MEDS: amiodarone/D5 360MG/200ML BAG 200 ML IV SCH ×2 (05:09→15:50)
[2022-04-24] MEDS: heparin 10,000 units/1 ML INJ IV PRN (06:26)
[2022-04-24] MEDS: metoprolol succinate 25mg (24-HOUR) SR. Tablet PO SCH (08:00)
[2022-04-24] MEDS: K, MAG and/or Phos replacement - Verify level? MC SCH (08:00)
[2022-04-24] MEDS: pantoprazole 40MG/NS 100ML BAG 100 ML IV SCH (08:09)
[2022-04-24] MEDS: docusate sodium 100mg/10ml UD cup OGT SCH ×2 (08:10→20:41)
[2022-04-24] MEDS: tamsulosin 0.4mg capsule PO SCH (08:10)
[2022-04-24] MEDS: aspirin 81mg tab.chew OGT SCH (08:10)
[2022-04-24] MEDS: atorvastatin 20mg tablet OGT SCH (08:10)
[2022-04-24] MEDS: vasopressin inj. 40 UNIT in dextrose 5%-water 50ml 38 ML IV SCH (08:30)
[2022-04-24] MEDS ORDERED: guaiFENesin 200 MG/10 ML oral syrup UD cup PO PRN (10:25)
[2022-04-24] MEDS ORDERED: albumin (Human) 5% 250ml 250 ML IV ONE (11:07)
[2022-04-24] MEDS: furosemide 10 MG/1 ML 10ml inj IV SCH ×2 (11:30→16:11)
[2022-04-24] MEDS ORDERED: albumin (human) 25% 100ml IV 100 ML IV ONE (11:39)
[2022-04-24] MEDS ORDERED: furosemide 40mg/4ml inj ONE (11:39)
[2022-04-24] MEDS: sodium chloride 3% for inhalation 4ml nebule IH SCH ×2 (15:09→20:55)
[2022-04-24] MEDS: ipratropium/albuterol 3ml nebule NEB SCH ×2 (15:09→20:55)
[2022-04-24] MEDS ORDERED: cefepime 1GM/NS ADD-VANTAGE 100 ML IV SCH (17:54)
--- NOTE | 2022-04-24 19:00 | NUR ---
RN Note -MD Communication Dr. Colby at bedside evaluating pt and speaking to pt's granddaughter. Plan to place PA line tomorrow, dc heparin and start argatroban, turn off argatroban at 0700.
[2022-04-24 19:54] LABS: APTT 39 SECONDS (22-32)
[2022-04-24] MEDS: argatroban in NS 50mg/50ml 50 ML IV SCH ×2 (20:41→22:36)
[2022-04-24] MEDS: insulin glargine (Lantus) pen - multi-dose SQ SCH (21:00)
--- NOTE | 2022-04-24 22:45 | NUR ---
RN Note -Pt is getting increasingly more tachycardic and tachypneic. Turned Versed back on and gave bolus of Fentanyl.
[2022-04-25] VITALS (37 sets, daily range): BP systolic 98–130; BP diastolic 47–77
[2022-04-25] MEDS: furosemide 10 MG/1 ML 10ml inj IV SCH ×3 (00:03→15:07)
[2022-04-25] MEDS: FENTANYL-0.9 % NACL/PF 100 ML IV PRN ×2 (00:16→17:06)
[2022-04-25 00:55] LABS: BASOPHILS % (AUTO) 0.2 % (0-1); EOSINOPHILS % (AUTO) 0.2 % (0-6); LYMPHOCYTES # (AUTO) 0.8 X10'3 (1.1-4.8); WHITE BLOOD COUNT 5.6 X10'3 (4.5-11.0)
[2022-04-25 00:57] LABS: HEMATOCRIT 26.2 % (42.0-52.0); HEMOGLOBIN 8.8 g/dl (14.0-17.9); LYMPHOCYTES % (AUTO) 14.2 % (21-51); MEAN CORPUSCULAR HEMOGLOBIN 34.7 PG (27.0-31.0); MEAN CORPUSCULAR HGB CONC 33.7 g/dL (33.0-36.5); MEAN CORPUSCULAR VOLUME 102.7 FL (78-98); MEAN PLATELET VOLUME 9.7 FL (7.4-10.4); MONOCYTES # (AUTO) 0.9 X10'3 (0-0.9); MONOCYTES % (AUTO) 15.3 % (2-12); NEUTROPHILS # (AUTO) 3.9 X10'3 (1.8-7.7); NEUTROPHILS % (AUTO) 70.1 % (42-75); PLATELET COUNT 74 X10'3 (140-440); RED BLOOD COUNT 2.55 X10'6 (4.70-6.10); RED CELL DISTRIBUTION WIDTH 20.1 % (11.5-14.5)
--- NOTE | 2022-04-25 01:00 | NUR ---
RN Note -MD Communication Called Dr. Frankel regarding pt is desaturating, staying in the mid 80's, even after sedation to make him more compliant with the vent. Also, pt has new blood coming from ET suction and gastric tube. Orders received.
[2022-04-25 01:06] LABS: ALANINE AMINOTRANSFERASE 28 U/L (12-78); ALBUMIN 2.9 G/DL (3.4-5.0); ALBUMIN/GLOBULIN RATIO 0.9 (1.1-1.5); ALKALINE PHOSPHATASE 108 IU/L (46-116); ANION GAP 9 (8-16); ASPARTATE AMINO TRANSFERASE 39 U/L (10-37); BILIRUBIN,TOTAL 0.9 MG/DL (0.1-1.0); BLOOD UREA NITROGEN 78 MG/DL (7-18); BUN/CREATININE RATIO 23.1 (5.4-32.0); CALCIUM 8.3 MG/DL (8.5-10.1); CHLORIDE 104 MMOL/L (99-107); CREATININE 3.38 MG/DL (0.60-1.10); GLUCOSE 149 MG/DL (70-104); MAGNESIUM 1.8 MG/DL (1.5-2.4); POTASSIUM 3.3 MMOL/L (3.5-5.1); SODIUM 141 MMOL/L (135-145); TOTAL CARBON DIOXIDE 27.9 MMOL/L (24-32); TOTAL PROTEIN 6.3 G/DL (6.4-8.2); eGFR 18 ML/MIN
[2022-04-25] MEDS: argatroban in NS 50mg/50ml 50 ML IV SCH ×7 (01:09→22:33)
[2022-04-25] MEDS: potassium Cl 20mEq/100mL bag 100 ML IV PRN ×2 (01:41→05:56)
[2022-04-25] MEDS: mineral oil/petrolatum ophthal oint EACHEYE SCH ×4 (02:00→20:42)
[2022-04-25] MEDS: ipratropium/albuterol 3ml nebule NEB SCH ×4 (03:24→21:07)
[2022-04-25] MEDS: sodium chloride 3% for inhalation 4ml nebule IH SCH ×4 (03:25→21:07)
[2022-04-25 03:36] LABS: HEMOGLOBIN 8.3 g/dl (14.0-17.9); MEAN CORPUSCULAR HGB CONC 33.8 g/dL (33.0-36.5); NEUTROPHILS # (AUTO) 3.4 X10'3 (1.8-7.7); NEUTROPHILS % (AUTO) 66.2 % (42-75); WHITE BLOOD COUNT 5.1 X10'3 (4.5-11.0)
[2022-04-25 03:38] LABS: BASOPHILS % (AUTO) 0.2 % (0-1); EOSINOPHILS % (AUTO) 0.4 % (0-6); HEMATOCRIT 24.5 % (42.0-52.0); LYMPHOCYTES # (AUTO) 0.9 X10'3 (1.1-4.8); LYMPHOCYTES % (AUTO) 18.1 % (21-51); MEAN CORPUSCULAR HEMOGLOBIN 34.5 PG (27.0-31.0); MEAN CORPUSCULAR VOLUME 102.3 FL (78-98); MEAN PLATELET VOLUME 9.5 FL (7.4-10.4); MONOCYTES # (AUTO) 0.8 X10'3 (0-0.9); MONOCYTES % (AUTO) 15.1 % (2-12); PLATELET COUNT 72 X10'3 (140-440)
[2022-04-25] MEDS: amiodarone/D5 360MG/200ML BAG 200 ML IV SCH ×2 (03:52→15:43)
[2022-04-25 03:58] LABS: ALANINE AMINOTRANSFERASE 26 U/L (12-78); ALBUMIN 2.7 G/DL (3.4-5.0); ALBUMIN/GLOBULIN RATIO 0.8 (1.1-1.5); ALKALINE PHOSPHATASE 98 IU/L (46-116); ANION GAP 7 (8-16); ASPARTATE AMINO TRANSFERASE 45 U/L (10-37); BILIRUBIN,TOTAL 0.8 MG/DL (0.1-1.0); BLOOD UREA NITROGEN 78 MG/DL (7-18); BUN/CREATININE RATIO 23.4 (5.4-32.0); CALCIUM 8.1 MG/DL (8.5-10.1); CHLORIDE 103 MMOL/L (99-107); CREATININE 3.33 MG/DL (0.60-1.10); GLUCOSE 150 MG/DL (70-104); POTASSIUM 4.3 MMOL/L (3.5-5.1); SODIUM 139 MMOL/L (135-145); TOTAL CARBON DIOXIDE 28.7 MMOL/L (24-32); eGFR 18 ML/MIN
[2022-04-25 04:00] LABS: LARGE PLATELETS FEW; PLATELET ESTIMATE DECREASED; TOTAL CELLS COUNTED 100
[2022-04-25 04:01] LABS: ANISOCYTOSIS 3+
[2022-04-25 04:08] LABS: ABG BASE EXCESS 3.6 mmol/L (-2.0-2.0); ABG HCO3 27.4 mmol/L (22.0-26.0); ABG OXYGEN SATURATION 93.2 % (94-97); ABG PCO2 (T) 38.2 mmHg (35.0-48.0); ABG PO2 (T) 68.7 mmHg (75.0-100.0); ALLEN'S TEST POSITIVE; FCOHb 0.3 % (0.0-3.9); FMetHb 0.2 % (0.0-1.5); FO2Hb 92.7 % (94-97); PEEP 8 cm H2O; RESPIRATORY RATE 22 b/min; TIDAL VOLUME 450 mL; TOTAL HEMOGLOBIN 9.5 G/dl (14.0-18.0)
[2022-04-25] MEDS: aspirin 81mg tab.chew OGT SCH (08:00)
[2022-04-25] MEDS: metoprolol succinate 25mg (24-HOUR) SR. Tablet PO SCH (08:00)
[2022-04-25] MEDS: tamsulosin 0.4mg capsule PO SCH (09:05)
[2022-04-25] MEDS: docusate sodium 100mg/10ml UD cup OGT SCH ×2 (09:05→20:41)
[2022-04-25] MEDS: pantoprazole 40MG/NS 100ML BAG 100 ML IV SCH (09:05)
[2022-04-25] MEDS: K, MAG and/or Phos replacement - Verify level? MC SCH (09:08)
[2022-04-25] MEDS: atorvastatin 20mg tablet OGT SCH (09:08)
[2022-04-25] MEDS ORDERED: guaiFENesin 200 MG/10 ML oral syrup UD cup OGT PRN (09:52)
[2022-04-25] MEDS ORDERED: metoclopramide 5 mg/ml inj IV PRN (10:55)
[2022-04-25] MEDS ORDERED: MESSAGE TO NURSING PO ONE (11:35)
[2022-04-25 12:31] LABS: HEMATOCRIT 24.8 % (42.0-52.0); HEMOGLOBIN 8.4 g/dl (14.0-17.9); LYMPHOCYTES # (AUTO) 0.9 X10'3 (1.1-4.8); MONOCYTES # (AUTO) 0.8 X10'3 (0-0.9); RED BLOOD COUNT 2.41 X10'6 (4.70-6.10); WHITE BLOOD COUNT 4.7 X10'3 (4.5-11.0)
[2022-04-25 12:33] LABS: BASOPHILS % (AUTO) 0.3 % (0-1); EOSINOPHILS % (AUTO) 0.5 % (0-6); LYMPHOCYTES % (AUTO) 19.1 % (21-51); MEAN CORPUSCULAR VOLUME 102.8 FL (78-98); MEAN PLATELET VOLUME 9.2 FL (7.4-10.4); MONOCYTES % (AUTO) 16.2 % (2-12); NEUTROPHILS % (AUTO) 63.9 % (42-75); PLATELET COUNT 99 X10'3 (140-440); RED CELL DISTRIBUTION WIDTH 20.1 % (11.5-14.5)
[2022-04-25 12:45] LABS: APTT 42 SECONDS (22-32)
[2022-04-25 12:46] LABS: ALANINE AMINOTRANSFERASE 32 U/L (12-78); ALBUMIN 2.6 G/DL (3.4-5.0); ALBUMIN/GLOBULIN RATIO 0.8 (1.1-1.5); ALKALINE PHOSPHATASE 98 IU/L (46-116); ASPARTATE AMINO TRANSFERASE 54 U/L (10-37); BILIRUBIN,DIRECT 0.3 MG/DL (0-0.3); BILIRUBIN,TOTAL 0.9 MG/DL (0.1-1.0)
[2022-04-25] MEDS: metoclopramide 5 mg/ml inj IV SCH ×2 (14:56→20:42)
[2022-04-25] MEDS: normal saline 1,000 ML IV SCH (17:17)
[2022-04-25] MEDS: metoprolol tartrate 12.5mg (1/2 tablet) OGT SCH (20:42)
[2022-04-25] MEDS: insulin glargine (Lantus) pen - multi-dose SQ SCH (21:00)
[2022-04-25] MEDS: midazolam 100mg in NS 100ml 100 ML IV PRN (22:12)
[2022-04-26] VITALS (35 sets, daily range): BP systolic 15–130; BP diastolic 48–68
[2022-04-26] MEDS: furosemide 10 MG/1 ML 10ml inj IV SCH ×3 (00:47→15:40)
[2022-04-26] MEDS: argatroban in NS 50mg/50ml 50 ML IV SCH ×5 (00:49→19:14)
[2022-04-26] MEDS: FENTANYL-0.9 % NACL/PF 100 ML IV PRN ×4 (01:01→23:25)
[2022-04-26] MEDS: mineral oil/petrolatum ophthal oint EACHEYE SCH ×4 (02:00→20:10)
[2022-04-26] MEDS: metoclopramide 5 mg/ml inj IV SCH ×4 (02:00→20:15)
[2022-04-26 02:03] LABS: APTT 104 SECONDS (22-32)
[2022-04-26] MEDS: ipratropium/albuterol 3ml nebule NEB SCH ×4 (03:25→20:58)
[2022-04-26] MEDS: sodium chloride 3% for inhalation 4ml nebule IH SCH ×4 (03:26→20:58)
[2022-04-26] MEDS: amiodarone/D5 360MG/200ML BAG 200 ML IV SCH ×2 (03:36→15:39)
[2022-04-26 03:40] LABS: BASOPHILS % (AUTO) 0.4 % (0-1); EOSINOPHILS % (AUTO) 0.8 % (0-6)
[2022-04-26 03:42] LABS: HEMATOCRIT 24.1 % (42.0-52.0); LYMPHOCYTES # (AUTO) 0.9 X10'3 (1.1-4.8); MEAN CORPUSCULAR HEMOGLOBIN 34.7 PG (27.0-31.0); MEAN CORPUSCULAR HGB CONC 33.3 g/dL (33.0-36.5); MEAN PLATELET VOLUME 9.8 FL (7.4-10.4); MONOCYTES # (AUTO) 0.8 X10'3 (0-0.9); MONOCYTES % (AUTO) 21.7 % (2-12); NEUTROPHILS # (AUTO) 2.1 X10'3 (1.8-7.7); NEUTROPHILS % (AUTO) 55.1 % (42-75); PLATELET COUNT 90 X10'3 (140-440); RED BLOOD COUNT 2.31 X10'6 (4.70-6.10); RED CELL DISTRIBUTION WIDTH 20.5 % (11.5-14.5); WHITE BLOOD COUNT 3.9 X10'3 (4.5-11.0)
[2022-04-26 03:59] LABS: ALANINE AMINOTRANSFERASE 29 U/L (12-78); ALBUMIN 2.4 G/DL (3.4-5.0); ALBUMIN/GLOBULIN RATIO 0.7 (1.1-1.5); ALKALINE PHOSPHATASE 84 IU/L (46-116); ANION GAP 11 (8-16); ASPARTATE AMINO TRANSFERASE 46 U/L (10-37); BILIRUBIN,TOTAL 0.9 MG/DL (0.1-1.0); BLOOD UREA NITROGEN 86 MG/DL (7-18); BUN/CREATININE RATIO 22.1 (5.4-32.0); CALCIUM 8.3 MG/DL (8.5-10.1); CHLORIDE 102 MMOL/L (99-107); CREATININE 3.89 MG/DL (0.60-1.10); GLUCOSE 124 MG/DL (70-104); MAGNESIUM 1.7 MG/DL (1.5-2.4); SODIUM 140 MMOL/L (135-145); TOTAL CARBON DIOXIDE 27.4 MMOL/L (24-32); TOTAL PROTEIN 5.7 G/DL (6.4-8.2); eGFR 15 ML/MIN
[2022-04-26 04:20] LABS: ABG BASE EXCESS 3.7 mmol/L (-2.0-2.0); ABG HCO3 27.5 mmol/L (22.0-26.0); ABG OXYGEN SATURATION 90.5 % (94-97); ABG PCO2 (T) 39.4 mmHg (35.0-48.0); ABG PO2 (T) 62.4 mmHg (75.0-100.0); ALLEN'S TEST POSITIVE; FCOHb 0.3 % (0.0-3.9); FMetHb 0.2 % (0.0-1.5); PATIENT TEMPERATURE 37.4; TOTAL HEMOGLOBIN 9.9 G/dl (14.0-18.0)
[2022-04-26 06:10] LABS: APTT 81 SECONDS (22-32)
[2022-04-26] MEDS: metoprolol tartrate 12.5mg (1/2 tablet) OGT SCH ×2 (08:00→20:15)
[2022-04-26] MEDS: K, MAG and/or Phos replacement - Verify level? MC SCH (08:00)
[2022-04-26] MEDS: aspirin 81mg tab.chew OGT SCH (08:11)
[2022-04-26] MEDS: atorvastatin 20mg tablet OGT SCH (08:11)
[2022-04-26] MEDS: tamsulosin 0.4mg capsule PO SCH (08:12)
[2022-04-26] MEDS: pantoprazole 40MG/NS 100ML BAG 100 ML IV SCH (08:12)
[2022-04-26] MEDS: docusate sodium 100mg/10ml UD cup OGT SCH ×2 (08:18→20:16)
--- NOTE | 2022-04-26 10:24 | NUR ---
Dr Colby examined chest xray and ordered PA line pulled back 1 cm. Pulled PA line back 1 cm and locked hub as ordered.
--- NOTE | 2022-04-26 11:06 | NUR ---
TF Consult: Pt remains intubated EN held yesterday given elevated GRV 500 w/ reglan started yesterday per MD. TF to restart this AM per textile screen maker; no change to EN recs at this time and can initiate at goal rate 75ml/hr RD d/w RN and textile screen maker. Pt no BM this admit at least 8 days constipation receiving routine colace in addition to reglan; pending KUB w/ additional bowel regimen to begin per MD at rounds. Will continue to monitor. Recommendations: 1) Continuous TF per MD using Vital HP at 75 mL/hr goal; to provide 1800ml volume/day, 1800 kcals, 1505ml water, and 157g protein. 2) additional 100mL water flush Q6H; monitor serum Na 3) prealbumin q Friday/; daily wts 4) Phos binder w/ EN per MD; Phos 7.0mg/dl 04/20 5) Routine bowel care; at least 8 days constipation Addendum: 04/26/22 at [address] Amended: Links added.
[2022-04-26] MEDS ORDERED: albumin (Human) 5% 250ml 250 ML IV ONE (11:42)
[2022-04-26 14:41] LABS: ALANINE AMINOTRANSFERASE 27 U/L (12-78); ALBUMIN 2.3 G/DL (3.4-5.0); ALBUMIN/GLOBULIN RATIO 0.7 (1.1-1.5); ALKALINE PHOSPHATASE 81 IU/L (46-116); ANION GAP 10 (8-16); ASPARTATE AMINO TRANSFERASE 45 U/L (10-37); BLOOD UREA NITROGEN 91 MG/DL (7-18); BUN/CREATININE RATIO 22.2 (5.4-32.0); CALCIUM 8.3 MG/DL (8.5-10.1); CHLORIDE 102 MMOL/L (99-107); GLUCOSE 121 MG/DL (70-104); POTASSIUM 3.9 MMOL/L (3.5-5.1); SODIUM 141 MMOL/L (135-145); TOTAL CARBON DIOXIDE 28.8 MMOL/L (24-32); TOTAL PROTEIN 5.7 G/DL (6.4-8.2); eGFR 14 ML/MIN
[2022-04-26 17:33] LABS: APTT 89 SECONDS (22-32)
--- NOTE | 2022-04-26 18:30 | NUR ---
Problems reprioritized. Patient report given, questions answered & plan of care reviewed with Beka RN.
[2022-04-26] MEDS: normal saline 1000ml 1,000 ML IV SCH (20:10)
[2022-04-26] MEDS: diatrozoate meglu/diatrozoate sod (37% iodine) 120ML oral solution PO ONE (20:20)
[2022-04-26] MEDS: insulin glargine (Lantus) pen - multi-dose SQ SCH (21:00)
[2022-04-26 22:15] LABS: APTT 85 SECONDS (22-32)
[2022-04-26] MEDS ORDERED: diatrozoate meglu/diatrozoate sod (37% iodine) 120ML oral solution PO ONE (22:35)
[2022-04-27] VITALS (36 sets, daily range): BP systolic 93–139; BP diastolic 47–80
[2022-04-27] MEDS: mineral oil/petrolatum ophthal oint EACHEYE SCH ×4 (02:00→20:56)
[2022-04-27] MEDS: argatroban in NS 50mg/50ml 50 ML IV SCH ×7 (02:16→21:37)
[2022-04-27] MEDS: sodium chloride 3% for inhalation 4ml nebule IH SCH ×3 (02:22→15:08)
[2022-04-27] MEDS: ipratropium/albuterol 3ml nebule NEB SCH ×4 (02:24→20:53)
[2022-04-27 02:40] LABS: ABG BASE EXCESS 0.9 mmol/L (-2.0-2.0); ABG HCO3 25.8 mmol/L (22.0-26.0); ABG OXYGEN SATURATION 93.3 % (94-97); ABG PCO2 (T) 44.9 mmHg (35.0-48.0); ABG PO2 (T) 80.7 mmHg (75.0-100.0); ALLEN'S TEST POSITIVE; FCOHb 0.3 % (0.0-3.9); FMetHb 0.2 % (0.0-1.5); FO2Hb 92.8 % (94-97); PATIENT TEMPERATURE 38.4; PEEP 8 cm H2O; RESPIRATORY RATE 20 b/min; TIDAL VOLUME 450 mL; TOTAL HEMOGLOBIN 9.7 G/dl (14.0-18.0)
[2022-04-27] MEDS: metoclopramide 5 mg/ml inj IV SCH ×4 (03:03→20:56)
[2022-04-27 03:57] LABS: EOSINOPHILS # (AUTO) 0.1 X10'3 (0-0.9); HEMOGLOBIN 8.4 g/dl (14.0-17.9); PLATELET COUNT 98 X10'3 (140-440)
[2022-04-27 03:58] LABS: BASOPHILS % (AUTO) 0.4 % (0-1); EOSINOPHILS % (AUTO) 2.1 % (0-6); HEMATOCRIT 26.2 % (42.0-52.0); LYMPHOCYTES % (AUTO) 23.3 % (21-51); MEAN CORPUSCULAR HEMOGLOBIN 34.7 PG (27.0-31.0); MEAN CORPUSCULAR HGB CONC 32.1 g/dL (33.0-36.5); MEAN CORPUSCULAR VOLUME 107.9 FL (78-98); MEAN PLATELET VOLUME 10.1 FL (7.4-10.4); MONOCYTES # (AUTO) 0.7 X10'3 (0-0.9); MONOCYTES % (AUTO) 15.8 % (2-12); NEUTROPHILS # (AUTO) 2.5 X10'3 (1.8-7.7); NEUTROPHILS % (AUTO) 58.4 % (42-75); RED BLOOD COUNT 2.43 X10'6 (4.70-6.10); RED CELL DISTRIBUTION WIDTH 21.9 % (11.5-14.5); WHITE BLOOD COUNT 4.3 X10'3 (4.5-11.0)
[2022-04-27 04:09] LABS: ALANINE AMINOTRANSFERASE 26 U/L (12-78); ALBUMIN 2.2 G/DL (3.4-5.0); ALBUMIN/GLOBULIN RATIO 0.6 (1.1-1.5); ALKALINE PHOSPHATASE 80 IU/L (46-116); ANION GAP 13 (8-16); ASPARTATE AMINO TRANSFERASE 40 U/L (10-37); BILIRUBIN,TOTAL 1.1 MG/DL (0.1-1.0); BLOOD UREA NITROGEN 95 MG/DL (7-18); BUN/CREATININE RATIO 20.8 (5.4-32.0); CALCIUM 8.3 MG/DL (8.5-10.1); CHLORIDE 101 MMOL/L (99-107); CREATININE 4.56 MG/DL (0.60-1.10); GLUCOSE 117 MG/DL (70-104); MAGNESIUM 1.7 MG/DL (1.5-2.4); POTASSIUM 4.1 MMOL/L (3.5-5.1); SODIUM 141 MMOL/L (135-145); TOTAL CARBON DIOXIDE 26.9 MMOL/L (24-32); TOTAL PROTEIN 5.8 G/DL (6.4-8.2); eGFR 12 ML/MIN
[2022-04-27] MEDS: amiodarone/D5 360MG/200ML BAG 200 ML IV SCH (04:14)
[2022-04-27] MEDS: normal saline 1000ml 1,000 ML IV SCH ×2 (04:40→14:40)
[2022-04-27 04:47] LABS: APTT 73 SECONDS (22-32)
[2022-04-27] MEDS: FENTANYL-0.9 % NACL/PF 100 ML IV PRN ×2 (04:49→05:31)
[2022-04-27] MEDS ORDERED: acetaminophen 325mg/10.15ml oral unit dose solution PO PRN (05:05)
[2022-04-27] MEDS ORDERED: furosemide 10 MG/1 ML 10ml inj IV ONE (05:05)
--- NOTE | 2022-04-27 06:49 | NUR ---
RN note -MD Communication Called Dr. Hanson regarding am chest x-ray and increased temperature. Orders received.
[2022-04-27] MEDS: K, MAG and/or Phos replacement - Verify level? MC SCH (07:56)
[2022-04-27] MEDS: tamsulosin 0.4mg capsule PO SCH (07:57)
[2022-04-27] MEDS: pantoprazole 40MG/NS 100ML BAG 100 ML IV SCH (08:09)
[2022-04-27] MEDS: docusate sodium 100mg/10ml UD cup OGT SCH ×2 (08:09→20:56)
[2022-04-27] MEDS: atorvastatin 20mg tablet OGT SCH (08:09)
[2022-04-27] MEDS: metoprolol tartrate 12.5mg (1/2 tablet) OGT SCH ×2 (08:10→20:56)
[2022-04-27] MEDS: aspirin 81mg tab.chew OGT SCH (08:10)
[2022-04-27 11:54] LABS: APTT 71 SECONDS (22-32)
[2022-04-27] MEDS: furosemide 10 MG/1 ML 10ml inj IV SCH (15:54)
--- NOTE | 2022-04-27 18:30 | NUR ---
Patient in room CICU 2011. I have received report from [place] EDWARDS and had the opportunity to ask questions and assume patient care.
[2022-04-27 18:40] LABS: APTT 73 SECONDS (22-32)
--- NOTE | 2022-04-27 18:51 | NUR ---
Problems reprioritized. Patient report given, questions answered & plan of care reviewed with JERRY Gonzalez .
[2022-04-27] MEDS: metolazone 2.5mg tablet PO SCH (20:55)
[2022-04-27] MEDS: amiodarone 200mg tablet PO SCH (20:55)
[2022-04-27] MEDS: insulin glargine (Lantus) pen - multi-dose SQ SCH (21:00)
--- NOTE | 2022-04-27 22:02 | NUR ---
Patient's PA pressures very elevated, reading 70's to 80s systolic. Monitor showing increased ST depression. EKG obtained. Visual inspection of PA placement unchanged, Chest xray obtained to verify placement. Fentanyl drip restarted at 50mcg. PA pressure decreasing.
[2022-04-28] VITALS (34 sets, daily range): BP systolic 102–154; BP diastolic 47–78
[2022-04-28] MEDS: normal saline 1000ml 1,000 ML IV SCH ×2 (00:40→10:40)
[2022-04-28] MEDS: furosemide 10 MG/1 ML 10ml inj IV SCH ×4 (01:52→23:39)
[2022-04-28] MEDS: metoclopramide 5 mg/ml inj IV SCH ×2 (01:53→07:47)
[2022-04-28] MEDS: mineral oil/petrolatum ophthal oint EACHEYE SCH ×4 (01:53→20:00)
[2022-04-28] MEDS: FENTANYL-0.9 % NACL/PF 100 ML IV PRN ×2 (02:42→19:41)
[2022-04-28 02:53] LABS: EOSINOPHILS % (AUTO) 0.9 % (0-6); HEMOGLOBIN 7.6 g/dl (14.0-17.9); LYMPHOCYTES # (AUTO) 0.9 X10'3 (1.1-4.8); LYMPHOCYTES % (AUTO) 22.6 % (21-51); MEAN CORPUSCULAR VOLUME 104.7 FL (78-98); NEUTROPHILS # (AUTO) 2.3 X10'3 (1.8-7.7); WHITE BLOOD COUNT 3.9 X10'3 (4.5-11.0)
[2022-04-28] MEDS: argatroban in NS 50mg/50ml 50 ML IV SCH ×7 (02:53→23:59)
[2022-04-28 02:54] LABS: BASOPHILS % (AUTO) 0.5 % (0-1); HEMATOCRIT 23.2 % (42.0-52.0); MEAN CORPUSCULAR HEMOGLOBIN 34.4 PG (27.0-31.0); MEAN CORPUSCULAR HGB CONC 32.8 g/dL (33.0-36.5); MEAN PLATELET VOLUME 10.1 FL (7.4-10.4); MONOCYTES # (AUTO) 0.7 X10'3 (0-0.9); PLATELET COUNT 101 X10'3 (140-440); RED BLOOD COUNT 2.22 X10'6 (4.70-6.10); RED CELL DISTRIBUTION WIDTH 20.8 % (11.5-14.5)
[2022-04-28] MEDS: ipratropium/albuterol 3ml nebule NEB SCH ×5 (02:56→20:51)
[2022-04-28 03:10] LABS: ALANINE AMINOTRANSFERASE 28 U/L (12-78); ALBUMIN 2.1 G/DL (3.4-5.0); ALBUMIN/GLOBULIN RATIO 0.6 (1.1-1.5); ALKALINE PHOSPHATASE 77 IU/L (46-116); ANION GAP 14 (8-16); ASPARTATE AMINO TRANSFERASE 57 U/L (10-37); BILIRUBIN,TOTAL 1.1 MG/DL (0.1-1.0); BLOOD UREA NITROGEN 113 MG/DL (7-18); BUN/CREATININE RATIO 20.8 (5.4-32.0); CALCIUM 8.5 MG/DL (8.5-10.1); CHLORIDE 101 MMOL/L (99-107); CREATININE 5.44 MG/DL (0.60-1.10); GLUCOSE 117 MG/DL (70-104); MAGNESIUM 1.9 MG/DL (1.5-2.4); PHOSPHORUS 7.4 MG/DL (2.3-4.5); POTASSIUM 4.2 MMOL/L (3.5-5.1); SODIUM 141 MMOL/L (135-145); TOTAL CARBON DIOXIDE 26.5 MMOL/L (24-32); TOTAL PROTEIN 5.8 G/DL (6.4-8.2); eGFR 10 ML/MIN
[2022-04-28 03:23] LABS: ABG BASE EXCESS -0.9 mmol/L (-2.0-2.0); ABG HCO3 23.5 mmol/L (22.0-26.0); ABG OXYGEN SATURATION 97.5 % (94-97); ABG PO2 (T) 107.5 mmHg (75.0-100.0); ALLEN'S TEST POSITIVE; FCOHb 0.2 % (0.0-3.9); FMetHb 0.4 % (0.0-1.5); FO2Hb 96.9 % (94-97); PATIENT TEMPERATURE 36.7; PEEP 8 cm H2O; RESPIRATORY RATE 20 b/min; TIDAL VOLUME 450 mL; TOTAL HEMOGLOBIN 8.3 G/dl (14.0-18.0)
[2022-04-28 03:30] LABS: TOTAL CELLS COUNTED 100
[2022-04-28 03:31] LABS: ANISOCYTOSIS 3+; PLATELET ESTIMATE DECREASED; ROULEAUX 1+
[2022-04-28 03:58] LABS: APTT 70 SECONDS (22-32)
--- NOTE | 2022-04-28 06:33 | NUR ---
Problems reprioritized. Patient report given, questions answered & plan of care reviewed with Reina EDWARDS.
[2022-04-28] MEDS: atorvastatin 20mg tablet OGT SCH (07:47)
[2022-04-28] MEDS: docusate sodium 100mg/10ml UD cup OGT SCH ×2 (07:47→21:03)
[2022-04-28] MEDS: aspirin 81mg tab.chew OGT SCH (07:47)
[2022-04-28] MEDS: amiodarone 200mg tablet PO SCH (07:47)
[2022-04-28] MEDS: metoprolol tartrate 12.5mg (1/2 tablet) OGT SCH ×2 (07:47→21:03)
[2022-04-28] MEDS: metolazone 2.5mg tablet PO SCH (07:48)
[2022-04-28] MEDS: pantoprazole 40MG/NS 100ML BAG 100 ML IV SCH (07:48)
--- NOTE | 2022-04-28 07:48 | NUR ---
TPN consult: Pt remains intubated and sedated. Per MD note, pt possibly w/ small bowel obstruction, to start TPN w/ trickle tube feeds. Will opt for Non-E formula at this time given elevated Phos and BUN/Creatinine have been steadily increasing, though will closely monitor need for electrolyte containing formula. TPN and TF recs below, have been discussed w/ Pharmacist and RN. Still no BM x 10days, receiving routine colace and reglan. Will continue to monitor. Recommendations: 1) Continuous TPN per MD using Clinimix 2:1 Non-E 5/15 at 80ml/hr goal w/ additional 20% ILE to run at 20.8ml/hr x 12hr 1 time per week. To provide 1920ml volume, 96g AA, 288g Dex (1.07mg/kg/min GIR) avg 1433kcals. 2) Trickle TF per MD using Vital HP at 15ml/hr to provide 360ml volume, 360kcals, 32g protein, 301ml free water 3) Additional water flush 100ml Q6H, monitor renal labs and Na 4) PALB/TG q Friday/; daily wts 5) Phos binder w/ EN per MD; Phos 7.0mg/dl 04/20 6) Routine bowel care; at least 10 days constipation Addendum: 04/28/22 at [address] Amended: Links added.
[2022-04-28] MEDS: K, MAG and/or Phos replacement - Verify level? MC SCH (08:00)
[2022-04-28] MEDS: tamsulosin 0.4mg capsule PO SCH (08:00)
[2022-04-28 09:13] LABS: APTT 72 SECONDS (22-32)
--- NOTE | 2022-04-28 11:03 | NUR ---
Dr. Samuels in to see pt. Orders: DARWIN Bates DC IVF (Ns @ 100), obtain ABG at 1200 since decreased FI02 to 60 now).
[2022-04-28] MEDS ORDERED: potassium Cl 40MEQ/1/2NS 520ml 520 ML IV PRN ×2 (12:20)
[2022-04-28] MEDS ORDERED: Neutra Phos packet PO PRN (12:20)
[2022-04-28] MEDS ORDERED: sodium phosphate inj. 15 MMOL in dextrose 5%-water 250 ML IV PRN (12:20)
[2022-04-28] MEDS ORDERED: magnesium 2GM in 50ml NS 50 ML IV PRN (12:20)
[2022-04-28] MEDS ORDERED: sodium phosphate inj. 30 MMOL in dextrose 5%-water 250 ML IV PRN (12:20)
[2022-04-28] MEDS ORDERED: magnesium 4gm in 100ml NS 100 ML IV PRN (12:20)
[2022-04-28] MEDS ORDERED: Dextrose 10%-water IV solution 1,000 ML IV PRN (12:20)
[2022-04-28] MEDS ORDERED: magnesium Cl slow-release 64mg tablet PO PRN (12:20)
[2022-04-28] MEDS ORDERED: potassium Cl 20 mEq SR tablet PO PRN ×2 (12:20)
[2022-04-28] MEDS ORDERED: acetaminophen 325mg/10.15ml oral unit dose solution OGT PRN (12:49)
--- NOTE | 2022-04-28 12:49 | NUR ---
Dr. Samuels aware that pt. had emesis that appeared to be tube feed per break nurse. Tube feed off. OGt to LIS.
[2022-04-28] MEDS ORDERED: Neutra Phos packet OGT PRN (12:50)
[2022-04-28] MEDS ORDERED: ZINC/COPPER/MANGANESE/SELENIUM 1 ML, chromic chloride inj. 10 MCG in AMINO ACIDS 5 %/DE... IV SCH ×6 (13:40)
[2022-04-28 13:56] LABS: ABG BASE EXCESS -1.8 mmol/L (-2.0-2.0); ABG HCO3 22.2 mmol/L (22.0-26.0); ABG OXYGEN SATURATION 93.5 % (94-97); ABG PCO2 (T) 34.4 mmHg (35.0-48.0); ABG PO2 (T) 73.1 mmHg (75.0-100.0); FMetHb 0.2 % (0.0-1.5); FO2Hb 93.3 % (94-97); PEEP 8 cm H2O; RESPIRATORY RATE 20 b/min; TIDAL VOLUME 450 mL; TOTAL HEMOGLOBIN 8.6 G/dl (14.0-18.0)
[2022-04-28] MEDS ORDERED: erythromycin ethylsuccinate 200mg/5ml 200ml bottle PO SCH (14:00)
[2022-04-28] MEDS: ZINC/COPPER/MANGANESE/SELENIUM 1 ML, chromic chloride inj. 10 MCG in AMINO ACIDS 5 %/DE... IV SCH (16:29)
[2022-04-28] MEDS ORDERED: CHROMIC CHLORIDE IV SCH (17:00)
[2022-04-28] MEDS ORDERED: SELENIUM IV SCH (17:00)
[2022-04-28] MEDS ORDERED: K, MAG and/or Phos replacement - Verify level? MC SCH (17:00)
[2022-04-28] MEDS ORDERED: MANGANESE IV SCH (17:00)
[2022-04-28] MEDS ORDERED: [UNRECOGNIZED DRUG - OTHER] IV SCH (17:00)
[2022-04-28] MEDS ORDERED: COPPER IV SCH (17:00)
[2022-04-28] MEDS ORDERED: ZINC IV SCH (17:00)
[2022-04-28 17:21] LABS: ALANINE AMINOTRANSFERASE 25 U/L (12-78); ALBUMIN/GLOBULIN RATIO 0.6 (1.1-1.5); ALKALINE PHOSPHATASE 76 IU/L (46-116); ANION GAP 18 (8-16); ASPARTATE AMINO TRANSFERASE 45 U/L (10-37); BILIRUBIN,TOTAL 1.2 MG/DL (0.1-1.0); BLOOD UREA NITROGEN 125 MG/DL (7-18); BUN/CREATININE RATIO 21.1 (5.4-32.0); CALCIUM 8.3 MG/DL (8.5-10.1); CHLORIDE 101 MMOL/L (99-107); CREATININE 5.92 MG/DL (0.60-1.10); GLUCOSE 127 MG/DL (70-104); PHOSPHORUS 8.4 MG/DL (2.3-4.5); POTASSIUM 4.4 MMOL/L (3.5-5.1); PREALBUMIN 9.9 MG/DL (19-36); SODIUM 142 MMOL/L (135-145); TOTAL CARBON DIOXIDE 22.6 MMOL/L (24-32); TOTAL PROTEIN 5.5 G/DL (6.4-8.2); TRIGLYCERIDES 129 MG/DL (20-135); eGFR 9 ML/MIN
--- NOTE | 2022-04-28 18:06 | NUR ---
Problems reprioritized. Patient report given, questions answered & plan of care reviewed with Tangela EWDARDS.
--- NOTE | 2022-04-28 18:10 | NUR ---
Patient in room CICU 2011. I have received report from JERRY Huang and had the opportunity to ask questions and assume patient care. Patient intubated/sedated still,aughter at bedside.
[2022-04-28 20:05] LABS: APTT 83 SECONDS (22-32)
[2022-04-28] MEDS: insulin glargine (Lantus) pen - multi-dose SQ SCH (21:00)
[2022-04-28] MEDS: metolazone 2.5mg tablet OGT SCH (21:04)
[2022-04-28] MEDS: amiodarone 200mg tablet OGT SCH (21:04)
[2022-04-29] VITALS (36 sets, daily range): BP systolic 90–123; BP diastolic 42–63
[2022-04-29] MEDS: mineral oil/petrolatum ophthal oint EACHEYE SCH ×4 (02:00→20:16)
[2022-04-29 02:32] LABS: EOSINOPHILS # (AUTO) 0.1 X10'3 (0-0.9); EOSINOPHILS % (AUTO) 1.1 % (0-6); HEMOGLOBIN 7.6 g/dl (14.0-17.9); MEAN CORPUSCULAR HEMOGLOBIN 34.7 PG (27.0-31.0); MONOCYTES # (AUTO) 0.8 X10'3 (0-0.9); NEUTROPHILS # (AUTO) 3.5 X10'3 (1.8-7.7); WHITE BLOOD COUNT 5.2 X10'3 (4.5-11.0)
[2022-04-29 02:34] LABS: BASOPHILS % (AUTO) 0.6 % (0-1); HEMATOCRIT 22.7 % (42.0-52.0); LYMPHOCYTES # (AUTO) 0.8 X10'3 (1.1-4.8); LYMPHOCYTES % (AUTO) 16.3 % (21-51); MEAN CORPUSCULAR HGB CONC 33.5 g/dL (33.0-36.5); MEAN CORPUSCULAR VOLUME 103.8 FL (78-98); MEAN PLATELET VOLUME 10.2 FL (7.4-10.4); PLATELET COUNT 141 X10'3 (140-440); RED BLOOD COUNT 2.19 X10'6 (4.70-6.10); RED CELL DISTRIBUTION WIDTH 20.6 % (11.5-14.5)
[2022-04-29 02:50] LABS: ALANINE AMINOTRANSFERASE 25 U/L (12-78); ALBUMIN/GLOBULIN RATIO 0.5 (1.1-1.5); ALKALINE PHOSPHATASE 76 IU/L (46-116); ANION GAP 17 (8-16); ASPARTATE AMINO TRANSFERASE 41 U/L (10-37); BILIRUBIN,TOTAL 1.1 MG/DL (0.1-1.0); BLOOD UREA NITROGEN 127 MG/DL (7-18); BUN/CREATININE RATIO 20.7 (5.4-32.0); CALCIUM 8.2 MG/DL (8.5-10.1); CHLORIDE 100 MMOL/L (99-107); CREATININE 6.13 MG/DL (0.60-1.10); GLUCOSE 164 MG/DL (70-104); MAGNESIUM 2.1 MG/DL (1.5-2.4); PHOSPHORUS 7.8 MG/DL (2.3-4.5); SODIUM 141 MMOL/L (135-145); TOTAL CARBON DIOXIDE 23.6 MMOL/L (24-32); TOTAL PROTEIN 5.8 G/DL (6.4-8.2); TRIGLYCERIDES 195 MG/DL (20-135); eGFR 9 ML/MIN
[2022-04-29] MEDS: ipratropium/albuterol 3ml nebule NEB SCH ×4 (02:53→20:55)
[2022-04-29 03:11] LABS: ABG BASE EXCESS -1.8 mmol/L (-2.0-2.0); ABG HCO3 22.1 mmol/L (22.0-26.0); ABG OXYGEN SATURATION 89.1 % (94-97); ABG PCO2 (T) 34.7 mmHg (35.0-48.0); ABG PO2 (T) 61.1 mmHg (75.0-100.0); ALLEN'S TEST POSITIVE; FCOHb 0.2 % (0.0-3.9); FMetHb 0.5 % (0.0-1.5); FO2Hb 88.5 % (94-97); PATIENT TEMPERATURE 37.3; PEEP 8 cm H2O; RESPIRATORY RATE 20 b/min; TIDAL VOLUME 450 mL; TOTAL HEMOGLOBIN 8.4 G/dl (14.0-18.0)
[2022-04-29] MEDS: argatroban in NS 50mg/50ml 50 ML IV SCH ×3 (03:30→10:32)
--- NOTE | 2022-04-29 04:12 | NUR ---
Karen Honeycutt,ANNALEE as patient is bleeding out right ear and OG now has bright red blood. Per provider stop Argatroban, he reviewed labs that just came back. I will continue to monitor.
--- NOTE | 2022-04-29 06:21 | NUR ---
Problems reprioritized. Patient report given, questions answered & plan of care reviewed with JERRY Norris.
--- NOTE | 2022-04-29 06:30 | NUR ---
Patient in room CICU 2011. I have received report from JERRY Honeycutt and had the opportunity to ask questions and assume patient care.
[2022-04-29] MEDS: furosemide 10 MG/1 ML 10ml inj IV SCH (07:48)
[2022-04-29] MEDS: K, MAG and/or Phos replacement - Verify level? MC SCH (07:50)
[2022-04-29] MEDS: atorvastatin 20mg tablet OGT SCH (07:55)
[2022-04-29] MEDS: docusate sodium 100mg/10ml UD cup OGT SCH ×2 (07:55→20:16)
[2022-04-29] MEDS: pantoprazole 40MG/NS 100ML BAG 100 ML IV SCH (07:55)
[2022-04-29] MEDS: aspirin 81mg tab.chew OGT SCH (07:55)
[2022-04-29] MEDS: amiodarone 200mg tablet OGT SCH ×2 (07:55→20:16)
[2022-04-29] MEDS: metolazone 2.5mg tablet OGT SCH (07:56)
[2022-04-29] MEDS: metoprolol tartrate 12.5mg (1/2 tablet) OGT SCH ×2 (07:56→20:18)
[2022-04-29] MEDS: erythromycin ethylsuccinate 200mg/5ml 200ml bottle OGT SCH ×3 (10:01→20:17)
--- NOTE | 2022-04-29 12:34 | NUR ---
F/u 04/29: Pt w/ multiple emesis episodes yesterday EN now held w/ PN for sole nutrition per RN. TPN advanced to goal today however not to exceed 50ml/hr per dopeman at rounds; updated recs below. RD d/w MD regarding only meeting 41% protein/61% kcal of minimum estimated needs on vent; MD aware. No BM 11 days this admit receiving routine colace pending CT abdomen/pelvis following overnight prep per MD. Recommendations: 1) Continuous TPN using 2:1 Clinimix Non-E 02/10 to run at 50ml/hr goal per MD w/ separate 250ml 20% ILE to run at 20.83ml/hr x 12hr Q /Fri. In total; to provide 1200ml volume, 60g AA, 180g Dex (1.01mg/kg/min GIR), and avg 995 kcals/day. 2) IF PN to change per MD; consider custom PN to provide more nutrition benefit in smaller volume 3) PALB/TG q Friday/; daily wts 4) bowel care per MD; possible SBO per EMR pending imaging 04/30 Addendum: 04/29/22 at [address] Amended: Links added.
[2022-04-29] MEDS: insulin regular, human U-100 3ml vial - multi-dose SQ SCH ×2 (14:13→20:27)
[2022-04-29] MEDS: FENTANYL-0.9 % NACL/PF 100 ML IV PRN (15:33)
--- NOTE | 2022-04-29 18:25 | NUR ---
Problems reprioritized. Patient report given, questions answered & plan of care reviewed with JERRY Weaver.
--- NOTE | 2022-04-29 18:30 | NUR ---
Patient in room CICU 2011. I have received report from JERRY Norris and had the opportunity to ask questions and assume patient care.
[2022-04-29] MEDS: diatr meglu/diatrizoate 30ml oral sol.-(3 dose) bottle PO SCH (20:18)
[2022-04-29] MEDS: insulin glargine (Lantus) pen - multi-dose SQ SCH (20:28)
[2022-04-29] MEDS ORDERED: polyethylene glycol 3350 17gm powd pack PO SCH (21:00)
[2022-04-30] VITALS (34 sets, daily range): BP systolic 83–125; BP diastolic 40–66
[2022-04-30] MEDS: mineral oil/petrolatum ophthal oint EACHEYE SCH ×4 (02:04→20:35)
[2022-04-30] MEDS: insulin regular, human U-100 3ml vial - multi-dose SQ SCH ×4 (02:22→20:44)
[2022-04-30] MEDS: erythromycin ethylsuccinate 200mg/5ml 200ml bottle OGT SCH ×4 (02:24→20:34)
[2022-04-30 02:28] LABS: EOSINOPHILS % (AUTO) 0.6 % (0-6); LYMPHOCYTES # (AUTO) 1.2 X10'3 (1.1-4.8); MEAN CORPUSCULAR HGB CONC 32.9 g/dL (33.0-36.5); MEAN PLATELET VOLUME 9.7 FL (7.4-10.4); NEUTROPHILS # (AUTO) 4.4 X10'3 (1.8-7.7); NEUTROPHILS % (AUTO) 65.6 % (42-75); RED BLOOD COUNT 2.12 X10'6 (4.70-6.10); WHITE BLOOD COUNT 6.7 X10'3 (4.5-11.0)
[2022-04-30 02:30] LABS: BASOPHILS % (AUTO) 0.2 % (0-1); HEMATOCRIT 22.1 % (42.0-52.0); HEMOGLOBIN 7.3 g/dl (14.0-17.9); LYMPHOCYTES % (AUTO) 18.5 % (21-51); MEAN CORPUSCULAR HEMOGLOBIN 34.3 PG (27.0-31.0); MONOCYTES % (AUTO) 15.1 % (2-12); PLATELET COUNT 146 X10'3 (140-440); RED CELL DISTRIBUTION WIDTH 20.8 % (11.5-14.5)
[2022-04-30 02:40] LABS: APTT 44 SECONDS (22-32)
[2022-04-30 02:42] LABS: ALANINE AMINOTRANSFERASE 25 U/L (12-78); ALBUMIN 2.1 G/DL (3.4-5.0); ALBUMIN/GLOBULIN RATIO 0.5 (1.1-1.5); ALKALINE PHOSPHATASE 84 IU/L (46-116); ANION GAP 17 (8-16); ASPARTATE AMINO TRANSFERASE 37 U/L (10-37); BILIRUBIN,TOTAL 1.3 MG/DL (0.1-1.0); BLOOD UREA NITROGEN 145 MG/DL (7-18); BUN/CREATININE RATIO 21.5 (5.4-32.0); CALCIUM 8.3 MG/DL (8.5-10.1); CHLORIDE 98 MMOL/L (99-107); CREATININE 6.75 MG/DL (0.60-1.10); GLUCOSE 162 MG/DL (70-104); POTASSIUM 3.5 MMOL/L (3.5-5.1); SODIUM 138 MMOL/L (135-145); TOTAL CARBON DIOXIDE 22.9 MMOL/L (24-32); eGFR 8 ML/MIN
[2022-04-30] MEDS: ipratropium/albuterol 3ml nebule NEB SCH ×4 (03:31→20:49)
[2022-04-30 03:33] LABS: ANISOCYTOSIS 3+; PLATELET ESTIMATE NORMAL; TOTAL CELLS COUNTED 100
[2022-04-30 03:34] LABS: GIANT PLATELET FEW; LARGE PLATELETS FEW
[2022-04-30 03:35] LABS: HYPOCHROMASIA 1+; SMUDGE CELLS 4+
[2022-04-30 03:48] LABS: ABG BASE EXCESS -1.6 mmol/L (-2.0-2.0); ABG HCO3 22.6 mmol/L (22.0-26.0); ABG OXYGEN SATURATION 94.9 % (94-97); ABG PCO2 (T) 36.6 mmHg (35.0-48.0); ABG PO2 (T) 85.7 mmHg (75.0-100.0); ALLEN'S TEST po; FCOHb 0.3 % (0.0-3.9); FMetHb 0.3 % (0.0-1.5); FO2Hb 94.3 % (94-97); PATIENT TEMPERATURE 37.6; PEEP 8 cm H2O; RESPIRATORY RATE 20 b/min; TIDAL VOLUME 450 mL; TOTAL HEMOGLOBIN 7.4 G/dl (14.0-18.0)
[2022-04-30] MEDS: ZINC/COPPER/MANGANESE/SELENIUM 1 ML, chromic chloride inj. 10 MCG in AMINO ACIDS 5 %/DE... IV SCH (03:57)
--- NOTE | 2022-04-30 06:06 | NUR ---
Problems reprioritized. Patient report given, questions answered & plan of care reviewed with JERRY Norris.
--- NOTE | 2022-04-30 06:14 | NUR ---
Patient in room CICU 2012. I have received report from JERRY Weaver and had the opportunity to ask questions and assume patient care.
[2022-04-30] MEDS ORDERED: albumin (human) 25% 100ml IV 100 ML IV PRN (07:05)
[2022-04-30] MEDS ORDERED: EPOETIN ALFA-EPBX 20,000 UNIT/ML 1 ML MDV IV ONE (07:05)
[2022-04-30] MEDS ORDERED: mannitol 12.5gm/50mL VIAL IV ONE (07:05)
[2022-04-30] MEDS ORDERED: heparin 1,000 units/ml 10ml inj HE ONE ×2 (07:10)
[2022-04-30] MEDS: docusate sodium 100mg/10ml UD cup OGT SCH ×2 (07:16→20:34)
[2022-04-30] MEDS: K, MAG and/or Phos replacement - Verify level? MC SCH (07:16)
[2022-04-30] MEDS: aspirin 81mg tab.chew OGT SCH (07:16)
[2022-04-30] MEDS: atorvastatin 20mg tablet OGT SCH (07:17)
[2022-04-30] MEDS: metoprolol tartrate 12.5mg (1/2 tablet) OGT SCH ×3 (07:17→20:48)
[2022-04-30] MEDS: diatr meglu/diatrizoate 30ml oral sol.-(3 dose) bottle PO SCH ×2 (07:22→18:19)
[2022-04-30] MEDS: pantoprazole 40MG/NS 100ML BAG 100 ML IV SCH (07:23)
[2022-04-30] MEDS: amiodarone 200mg tablet OGT SCH ×2 (07:23→20:34)
[2022-04-30] MEDS ORDERED: MVI, adult No.4 with vit. K 10 ML in dextrose 5% water 500ml 500 ML IV SCH ×2 (08:00)
[2022-04-30] MEDS ORDERED: polyethylene glycol 3350 17gm powd pack OGT SCH (08:40)
[2022-04-30] MEDS ORDERED: folic acid 1mg tablet PO ONE (10:25)
--- NOTE | 2022-04-30 10:29 | NUR ---
Rounds note: Dr. Aparicio asked that all medications with sedative effect other than Fentanyl be discontinued.
[2022-04-30] MEDS ORDERED: folic acid/vitamin B complex w/vitamin C 0.8mg tablet PO SCH (10:30)
[2022-04-30] MEDS: FENTANYL-0.9 % NACL/PF 100 ML IV PRN (11:15)
[2022-04-30] MEDS ORDERED: DOXYCYCLINE IV ONE ×2 (11:30)
[2022-04-30] MEDS ORDERED: NS IV ONE (11:30)
[2022-04-30] MEDS ORDERED: NORMAL SALINE IV ONE (11:30)
[2022-04-30] MEDS ORDERED: LIDOcaine 1%/PF 5ML 10 MG/ML VIAL ONE ×2 (11:58→11:59)
[2022-04-30] MEDS ORDERED: heparin 1,000unit/ml 10ml vial 10 ML ONE (11:59)
[2022-04-30] MEDS ORDERED: DEXTROSE 5% IV SCH (12:05)
[2022-04-30] MEDS ORDERED: ARGATROBAN IV SCH ×2 (12:05→12:41)
[2022-04-30] MEDS ORDERED: WATER IV SCH (12:05)
[2022-04-30] MEDS: NORepinephrine 8mg/ 250ml NS 250 ML IV SCH ×2 (12:05→22:52)
--- NOTE | 2022-04-30 12:10 | NUR ---
Patient was noted to have ST depression on the monitor. 12 lead EKG was obtained per protocol. MD was shown EKG. Dr. Aparicio stated to restart Argatroban and to increase Metoprolol to 12.5 mg Q6H. He also stated to place an order for Levophed incase his blood pressure does not tolerate.
--- NOTE | 2022-04-30 12:26 | NUR ---
F/u 04/30: Pt remains intubated and NPO on vent tolerating TPN now advanced to 80ml/hr per EMR. PN meeting 65% protein/93% minimum estimated needs at this time. Pt s/p CT today; per report "no evidence for bowel obstruction or free air" w/ "possible duodenal diverticulum in the third portion of the duodenum versus tortuosity of the duodenum measuring approximately 32mm". Pt now to start HD as well per RN at rounds; consider custom PN per physician discretion if concerns for volume on HD. LBM 04/18 12 days constipation w/ PO meds held at this time. Will monitor for further nutrition intervention needs this admit. Recommendations: 1) Continuous TPN using 2:1 Clinimix Non-E / to run at 80ml/hr goal per MD w/ separate 250ml 20% ILE to run at 20.83ml/hr x 12hr Q /Fri. In total; to provide 1920ml volume, 96g AA, 288g Dex (1.62mg/kg/min GIR), and avg 1506 kcals/day. 2) IF PN to advance per MD; consider custom PN on HD 3) PALB/TG q Friday/; daily wts 4) bowel care per MD; LBM 04/18 12 days constipation w/ no obstruction though possible duodenal tortuosity per CT note Addendum: 04/30/22 at [address] Amended: Links added.
--- NOTE | 2022-04-30 12:30 | NUR ---
IR bedside with Dr. Dowd to place temp dialysis catheter in the right groin.
[2022-04-30] MEDS ORDERED: SODIUM CHLORIDE IV SCH (12:41)
[2022-04-30] MEDS: argatroban in NS 50mg/50ml 50 ML IV SCH ×4 (12:59→22:08)
--- NOTE | 2022-04-30 13:00 | NUR ---
Dr. Aparicio was asked if he would like Troponin series to be drawn to see the trend. He said yes, that he expects that they will be elevated and do not need to call with critical values.
[2022-04-30] MEDS ORDERED: folic acid/vitamin B complex w/vitamin C 0.8mg tablet OGT SCH (13:54)
[2022-04-30] MEDS: calcium acetate 667mg (phosLO) tablet OGT SCH ×2 (17:00→17:50)
--- NOTE | 2022-04-30 18:26 | NUR ---
Problems reprioritized. Patient report given, questions answered & plan of care reviewed with JERRY Weaver.
--- NOTE | 2022-04-30 18:30 | NUR ---
Patient in room CICU 2011. I have received report from JERRY Norris and had the opportunity to ask questions and assume patient care.
[2022-04-30] MEDS: DOXYCYCLINE 100 MG in NORMAL SALINE 100ml IV.SOLN IV SCH (20:35)
[2022-04-30] MEDS: insulin glargine (Lantus) pen - multi-dose SQ SCH (20:46)
[2022-05-01] VITALS (22 sets, daily range): BP systolic 80–130; BP diastolic 37–73
[2022-05-01] MEDS: metoprolol tartrate 12.5mg (1/2 tablet) OGT SCH (02:00)
[2022-05-01] MEDS: mineral oil/petrolatum ophthal oint EACHEYE SCH ×2 (02:06→07:29)
[2022-05-01] MEDS: insulin regular, human U-100 3ml vial - multi-dose SQ SCH (02:08)
[2022-05-01] MEDS: argatroban in NS 50mg/50ml 50 ML IV SCH ×2 (02:09→04:48)
[2022-05-01] MEDS: erythromycin ethylsuccinate 200mg/5ml 200ml bottle OGT SCH (02:12)
[2022-05-01 02:16] LABS: BASOPHILS % (AUTO) 0.3 % (0-1); LYMPHOCYTES # (AUTO) 1.1 X10'3 (1.1-4.8); NEUTROPHILS # (AUTO) 4.3 X10'3 (1.8-7.7)
[2022-05-01 02:17] LABS: EOSINOPHILS # (AUTO) 0.1 X10'3 (0-0.9); LYMPHOCYTES % (AUTO) 16.2 % (21-51); MEAN CORPUSCULAR HEMOGLOBIN 34.2 PG (27.0-31.0); MEAN CORPUSCULAR HGB CONC 33.1 g/dL (33.0-36.5); MEAN CORPUSCULAR VOLUME 103.4 FL (78-98); MEAN PLATELET VOLUME 9.3 FL (7.4-10.4); MONOCYTES # (AUTO) 1.1 X10'3 (0-0.9); MONOCYTES % (AUTO) 16.5 % (2-12); PLATELET COUNT 154 X10'3 (140-440); RED BLOOD COUNT 1.89 X10'6 (4.70-6.10); RED CELL DISTRIBUTION WIDTH 20.4 % (11.5-14.5); WHITE BLOOD COUNT 6.5 X10'3 (4.5-11.0)
[2022-05-01 02:21] LABS: HEMATOCRIT 19.5 % (42.0-52.0); HEMOGLOBIN 6.4 g/dl (14.0-17.9)
[2022-05-01 02:45] LABS: ALANINE AMINOTRANSFERASE 29 U/L (12-78); ALBUMIN 2.2 G/DL (3.4-5.0); ALBUMIN/GLOBULIN RATIO 0.6 (1.1-1.5); ALKALINE PHOSPHATASE 77 IU/L (46-116); ANION GAP 12 (8-16); ASPARTATE AMINO TRANSFERASE 39 U/L (10-37); BILIRUBIN,TOTAL 1.3 MG/DL (0.1-1.0); BLOOD UREA NITROGEN 98 MG/DL (7-18); BUN/CREATININE RATIO 20.9 (5.4-32.0); CALCIUM 8.1 MG/DL (8.5-10.1); CHLORIDE 98 MMOL/L (99-107); CREATININE 4.68 MG/DL (0.60-1.10); GLUCOSE 122 MG/DL (70-104); POTASSIUM 3.2 MMOL/L (3.5-5.1); SODIUM 136 MMOL/L (135-145); TOTAL CARBON DIOXIDE 25.6 MMOL/L (24-32); TOTAL PROTEIN 5.8 G/DL (6.4-8.2); eGFR 12 ML/MIN
[2022-05-01] MEDS: ipratropium/albuterol 3ml nebule NEB SCH ×2 (02:54→09:00)
[2022-05-01 03:11] LABS: ABG BASE EXCESS -2.8 mmol/L (-2.0-2.0); ABG HCO3 22.5 mmol/L (22.0-26.0); ABG OXYGEN SATURATION 91.8 % (94-97); ABG PCO2 (T) 42.3 mmHg (35.0-48.0); ABG PO2 (T) 74.3 mmHg (75.0-100.0); ALLEN'S TEST POSITIVE; FCOHb 0.3 % (0.0-3.9); FMetHb 0.4 % (0.0-1.5); FO2Hb 91.2 % (94-97); PATIENT TEMPERATURE 37.8; PEEP 8 cm H2O; RESPIRATORY RATE 20 b/min; TIDAL VOLUME 450 mL; TOTAL HEMOGLOBIN 7.9 G/dl (14.0-18.0)
[2022-05-01 03:29] LABS: FERRITIN 2892 NG/ML (26-388)
[2022-05-01 03:58] LABS: % IRON SATURATION 21 % (11-46); IRON 35 UG/DL (53-167); TOTAL IRON BINDING CAPACITY 165 UG/DL (259-388)
[2022-05-01 04:02] LABS: MAGNESIUM 1.7 MG/DL (1.5-2.4); PHOSPHORUS 4.3 MG/DL (2.3-4.5)
--- NOTE | 2022-05-01 04:08 | NUR ---
Dr. Hanson called and no answer, left a message, awaiting call back. need to discuss several urgent issues with him.
[2022-05-01] MEDS ORDERED: midazolam 1 mg/ML 2ml injection ONE (04:29)
[2022-05-01] MEDS ORDERED: midazolam 1 mg/ML 2ml injection IV ONE ×2 (04:30→04:35)
[2022-05-01] MEDS ORDERED: midazolam 100mg in NS 100ml 100 ML IV PRN (04:30)
--- NOTE | 2022-05-01 04:40 | NUR ---
Called Dr. Hanson a second time and this time he answered. He was notified that the patient's H/H is 6.4/19.5 and pt is bleeding from ETT and coags are pending. Pt is also tachypneic with RR in 30s and 40s and tachycardic, in severe distress with sats in high 70s. Fio2 at 100% and peep at 8. Dr. Hanson ordered 2 units of PRBCs and requested a call back when patient's coags are resulted. He ordered the argatroban to be held, gtt had been off since 314. MD also ordered to have fentanyl turned up to 100 and to start a versed gtt at 4. He ordered the peep to be turned up to 10 and 12 if needed. will proceed with all ordered interventions and call MD back with coag results.
[2022-05-01] MEDS: ZINC/COPPER/MANGANESE/SELENIUM 1 ML, chromic chloride inj. 10 MCG in AMINO ACIDS 5 %/DE... IV SCH (04:47)
[2022-05-01 04:55] LABS: D-DIMER 4.76 MG/L FEU (0-0.50)
[2022-05-01] MEDS: FENTANYL-0.9 % NACL/PF 100 ML IV PRN (05:05)
[2022-05-01] MEDS ORDERED: EPOETIN ALFA-EPBX 20,000 UNIT/ML 1 ML MDV IV ONE (05:45)
[2022-05-01] MEDS ORDERED: heparin 1,000 units/ml 10ml inj HE ONE ×2 (05:45)
[2022-05-01] MEDS ORDERED: albumin (human) 25% 100ml IV 100 ML IV PRN (05:45)
[2022-05-01 05:46] LABS: PLATELET COUNT 201 X10'3 (140-440)
--- NOTE | 2022-05-01 06:08 | NUR ---
Dr. Hanson called with coag results. ordered two FFPs and to have coags repeated at 1200.
--- NOTE | 2022-05-01 06:29 | NUR ---
Problems reprioritized. Patient report given, questions answered & plan of care reviewed with JERRY Bowden.
[2022-05-01] MEDS: pantoprazole 40MG/NS 100ML BAG 100 ML IV SCH (07:28)
[2022-05-01] MEDS: DOXYCYCLINE 100 MG in NORMAL SALINE 100ml IV.SOLN IV SCH (07:28)
[2022-05-01] MEDS: aspirin 81mg tab.chew OGT SCH (07:29)
[2022-05-01] MEDS: amiodarone 200mg tablet OGT SCH (07:29)
[2022-05-01] MEDS: atorvastatin 20mg tablet OGT SCH (07:29)
[2022-05-01] MEDS: calcium acetate 667mg (phosLO) tablet OGT SCH (07:29)
[2022-05-01] MEDS: docusate sodium 100mg/10ml UD cup OGT SCH (07:30)
[2022-05-01] MEDS ORDERED: folic acid 1mg tablet OGT SCH (08:00)
[2022-05-01] MEDS ORDERED: calcium acetate 667mg (PhosLO) capsule OGT SCH (09:57)
[2022-05-01] MEDS ORDERED: acetaminophen 325mg tablet PO PRN (10:55)
--- NOTE | 2022-05-01 11:00 | NUR ---
Nutrition consult re: discharge diet instructions for regular diet. Pt remains intubated at this time and receiving TPN though regular diet has just been added. Code status is palliative/comfort care and pt pending family arrival prior to extubation per EMR. Nutrition education not appropriate at this time. Will continue to follow. Addendum: 05/01/22 at [address] Amended: Links added.
[2022-05-01] MEDS ORDERED: morphine 10mg/ml inj. IV PRN (11:40)
[2022-05-01] MEDS ORDERED: LORazepam 2 mg/ml vial IV PRN (11:40)
[2022-05-01] MEDS ORDERED: morphine 4 MG/ML inj SYRINge ONE (11:43)
--- NOTE | 2022-05-01 12:00 | NUR ---
Wound care in for skin assessment secondary to continued low Christian score. The pt is lying in the bed in no apparent acute distress with family at the bedside. The family member appears to be crying. The primary nurse states that the family has elected to place the patient on comfort care and the patient is currently not stable enough for total body skin assessment. Skin assessment was deferred secondary to the patient's condition and the family's onset of grieving. [facility] will continue to monitor the patient's condition in an effort to complete skin assessment.
--- NOTE | 2022-05-01 12:47 | NUR ---
RN IS TO DOCUMENT YES TO ALL APPLICABLE AREAS Pronouncement of : 1. Time Physician Notified: 1230 2. Date of :05/01/2022 3. Time of : 1215 4. DNR/Withdraw life support documented:1000 5. Monitor strip has been placed on chart:y 6. Assessment process is of one-minute duration and includes following criteria: a) Patient is unresponsive to all stimuli: y b) Pupils fixed and non-reactive:y c) Auscultation of precordium reveals absence of heart tones:y d) Auscultation of lungs reveals absence of breath sounds:y e) Absence of blood pressure / all vital signs:y f) QRS complexes are not present on monitor / EKG strip:y g) Pacer spikes without capture:n 4. Comments:
[2022-05-01] MEDS ORDERED: sennosides/docusate sodium tablet PO SCH (20:00)
[2022-05-01] MEDS ORDERED: docusate sod 100mg capsule PO SCH (20:00)
[2022-05-02 06:24] LABS: APTT 126 SECONDS (22-32)
== END 2022-05-01 12:15 | DRG 286 ==
LOC: SSTAY O 14:05 → PCU 3S 17:27 → SSTAY O 17:57 → PCU 3S 04-20 00:57 → SSTAY O 04-20 00:57 → UNDOADMIN 04-20 00:58 → PCU 3S 04-20 00:58 → CICU 2S 04-20 01:23 → PCU 3S 04-20 01:23
PROVIDERS: ADMIT Internal Medicine Interventional Cardiology; ATTEND Internal Medicine Interventional Cardiology
PROC: 4A023N7 Measurement of Cardiac Sampling and Pressure, Left Heart, Percutaneous Approach (ICD-10-PCS; principal; 2022-04-19)
PROC: B2111ZZ Fluoroscopy of Multiple Coronary Arteries using Low Osmolar Contrast (ICD-10-PCS; 2022-04-19)
PROC: B2151ZZ Fluoroscopy of Left Heart using Low Osmolar Contrast (ICD-10-PCS; 2022-04-19)
PROC: 5A1955Z Respiratory Ventilation, Greater than 96 Consecutive Hours (ICD-10-PCS; 2022-04-20)
PROC: 0BH17EZ Insertion of Endotracheal Airway into Trachea, Via Natural or Artificial Opening (ICD-10-PCS; 2022-04-20)
PROC: 5A12012 Performance of Cardiac Output, Single, Manual (ICD-10-PCS; 2022-04-22)
PROC: 05HY33Z Insertion of Infusion Device into Upper Vein, Percutaneous Approach (ICD-10-PCS; 2022-04-22)
PROC: 30233N1 Transfusion of Nonautologous Red Blood Cells into Peripheral Vein, Percutaneous Approach (ICD-10-PCS; 2022-04-23)
PROC: 30233R1 Transfusion of Nonautologous Platelets into Peripheral Vein, Percutaneous Approach (ICD-10-PCS; 2022-04-25)
PROC: 4A133B3 Monitoring of Arterial Pressure, Pulmonary, Percutaneous Approach (ICD-10-PCS; 2022-04-25)
PROC: 06HY33Z Insertion of Infusion Device into Lower Vein, Percutaneous Approach (ICD-10-PCS; 2022-04-30)
PROC: B54BZZA Ultrasonography of Right Lower Extremity Veins, Guidance (ICD-10-PCS; 2022-04-30)
PROC: 5A1D70Z Performance of Urinary Filtration, Intermittent, Less than 6 Hours Per Day (ICD-10-PCS; 2022-04-30)
PROC: 30233M1 Transfusion of Nonautologous Plasma Cryoprecipitate into Peripheral Vein, Percutaneous Approach (ICD-10-PCS; 2022-05-01)
DX: I25.10 Atherosclerotic heart disease of native coronary artery without angina pectoris (principal); A41.9 Sepsis, unspecified organism; I63.9 Cerebral infarction, unspecified; N17.0 Acute kidney failure with tubular necrosis; J96.01 Acute respiratory failure with hypoxia; R65.21 Severe sepsis with septic shock; G93.40 Encephalopathy, unspecified; I24.9 Acute ischemic heart disease, unspecified; K56.7 Ileus, unspecified; Z99.11 Dependence on respirator [ventilator] status; E87.4 Mixed disorder of acid-base balance; I13.0 Hypertensive heart and chronic kidney disease with heart failure and stage 1 through stage 4 chronic kidney disease, or unspecified chronic kidney disease; E11.22 Type 2 diabetes mellitus with diabetic chronic kidney disease; N18.9 Chronic kidney disease, unspecified; D63.8 Anemia in other chronic diseases classified elsewhere; I46.9 Cardiac arrest, cause unspecified; E11.65 Type 2 diabetes mellitus with hyperglycemia; Z20.822 Contact with and (suspected) exposure to COVID-19; D64.9 Anemia, unspecified; D69.6 Thrombocytopenia, unspecified; E78.5 Hyperlipidemia, unspecified; H92.23 Otorrhagia, bilateral; I50.9 Heart failure, unspecified; J44.9 Chronic obstructive pulmonary disease, unspecified; J32.4 Chronic pansinusitis; R77.8 Other specified abnormalities of plasma proteins; R34 Anuria and oliguria; I49.01 Ventricular fibrillation; Z79.899 Other long term (current) drug therapy; Z79.82 Long term (current) use of aspirin; D72.819 Decreased white blood cell count, unspecified; Z51.5 Encounter for palliative care
CPT/HCPCS: 36415; 36430; 36556; 36600; 70450; 71045; 74018; 74176; 76770; 76937; 80048; 80053; 80061; 80076; 82570; 82607; 82728; 82803; 82810; 82948; 83036; 83540; 83550; 83605; 83735; 83880; 84100; 84132; 84134; 84145; 84300; 84478; 84484; 84540; 85007; 85008; 85018; 85025; 85379; 85384; 85610; 85730; 86022; 86885; 86900; 86901; 86920; 87040; 87070; 87811; 92950; 93005; 93306; 93308; 93458; 93880; 93971; 94002; 94003; 94640; 94760; 94799; 99152; A4333; A4620; A5120; A5200; A6212; A6213; A6258; A6402; A6449; A7015; A7526; A9900; C1751; C1758; C1769; C1894; C9113; G0257; G0378; J0282; J0692; J0883; J1644; J1815; J1940; J2060; J2150; J2250; J2270; J2765; J3010; J3475; J3480; J3490; J7030; J7040; J7050; J7060; J7070; P9016; P9035; P9045; P9047; P9059; Q0163; Q4081; Q9963; Q9967